=== PATIENT | female | born 1950 | race Caucasian/White ===

== ENCOUNTER → 2017-05-25 10:50 | Outpatient (CLI) | payer OTHER, SELFPAY ==
[2017-05-25 12:57] LABS: Absolute Neutrophil Count 12.6 X10^3/uL (2.0-7.7); Basophil# 0.12 X10^3/uL; Basophil% 0.7 % (0-1); Eosinophil# 0.05 X10^3/uL; Eosinophils% 0.3 % (0-5); Hematocrit 46.6 % (37-47); Hemoglobin 15.6 g/dl (12.0-15.0); Lymphocyte % 14.4 % (19-41); Mean Corp Hgb Conc 33.5 g/gl (32-36); Mean Corpuscular Hgb 30.4 pg (27.0-32.0); Mean Corpuscular Volume 90.8 fL (81-99); Mean Platelet Vol. 10.1 fl (6.2-12.0); Neutrophil # 12.58 X10^3/uL (2.7-7.7); Neutrophil % 75.3 % (47-70); Platelet Count 293 K/mm3 (150-450); RBC Distribution Width CV 13.9 % (11.6-14.6); RBC Distribution Width SD 45.9 fl (35.1-43.9); Red Blood Count 5.13 M/mm3 (4.2-5.4); White Blood Count 16.7 K/mm3 (4.4-11.0)
[2017-05-25 12:58] LABS: POSITIVE COUNT NO; POSITIVE DIFFERENTIAL NO; POSITIVE MORPHOLOGY NO
[2017-05-25 13:22] LABS: Vitamin D,25 Hydroxy 6.1 ng/mL (19.95-100.01)
[2017-05-25 13:28] LABS: ALB/GLOB Ratio 0.9 RATIO (0.9-2.4); AST(SGOT) 26 U/L (15-37); Alanine Aminotransfer ALT/SGPT 29 U/L (13-56); Albumin, Serum 3.7 g/dL (3.2-5.0); Alkaline Phosphatase 100 U/L (45-117); Anion Gap 10 (5-15); BUN 22 mg/dL (7-18); Calcium,Total 8.6 mg/dL (8.5-10.1); Chloride 100 mmol/L (98-107); Creatinine, Serum 0.96 mg/dL (0.55-1.02); EST Glomerular Filtration Rate 62 mL/min (>60); Est Glom Filt Rate - Afr Amer 75 mL/min (>60); Globulin 4.2 g/dL (2.2-4.2); Glucose 154 mg/dL (74-106); Potassium 4.1 mmol/L (3.5-5.1); Protein, Total 7.9 g/dL (6.4-8.2); Sodium Level 135 mmol/L (136-145); Thyroid Stim Hormone (TSH) 1.87 uIU/mL (0.358-3.74)
[2017-05-26 16:02] LABS: Hep C Antibodies 0.2 s/co ratio (0.0-0.9)
== END ==
PROVIDERS: Family Provider Family Medicine Geriatric Medicine; PCP Family Medicine Geriatric Medicine; Visit Provider Family Medicine Geriatric Medicine
DX: E55.9 Vitamin D deficiency, unspecified (principal); R53.83 Other fatigue; Z13.89 Encounter for screening for other disorder; N39.0 Urinary tract infection, site not specified
CPT/HCPCS: 36415; 80053; 82306; 84443; 85025; 86803; 87086; 87088; 87186

== ENCOUNTER → 2017-06-19 08:45 | Outpatient (CLI) | payer OTHER, SELFPAY ==
--- NOTE | 2017-06-19 08:48 | AAVD_ITS ---
Reason For Study: SMA stenosis Aorta Measurements Aorta Doppler Measurements Proximal aorta measures1.3 x 1.3cm. in cross- Peak systolic flow velocities within the proximal sectional axis. aorta measure 61.7 cm/sec. Proximal aorta measures1.3cm. in longitudinal Peak systolic flow velocities within the mid axis. aorta measure 50.1 cm/sec. Mid aorta measures1.3 x 1.3cm. in cross-sectionalPeak systolic flow velocities within the distal axis. aorta measure 58.1 cm/sec. Mid aorta measures1.3cm. in longitudinal axis. SMA Distal aorta measures1.2 x 1.1cm. in cross- Origin - 313.0 cm/s sectional axis. Prox - 305.0 cm/s Distal aorta measures1.2cm. in longitudinal axis.Mid - 157.0 cm/s Dist - 102.0 cm/s Celiac Absent color flow and doppler signal Hepatic artery - 88.5 cm/s Splenic artery - 56.6 cm/s COSMO not identified. Procedure Aorta IVC Iliac vasculature or bypass grafts 61427. Exam performed in department. Interpretation Summary 1. Aortoiliac with no stenosis. 2. 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 2. Celaic appears occluded. 4. COSMO not seen. Ordering Physician: Lamberto Kay Referring Physician: Lamberto Kay Performed By: Marija Woodruff RVT
== END ==
PROVIDERS: Family Provider Family Medicine Geriatric Medicine; PCP Family Medicine Geriatric Medicine; Visit Provider Surgery Vascular Surgery
DX: K55.1 Chronic vascular disorders of intestine (principal); F17.200 Nicotine dependence, unspecified, uncomplicated; E78.00 Pure hypercholesterolemia, unspecified; R10.9 Unspecified abdominal pain; R63.4 Abnormal weight loss
CPT/HCPCS: 93978

== ENCOUNTER 2017-06-22 07:53 | Day surgery (SDC) | payer OTHER, SELFPAY ==
--- NOTE | 2017-06-22 | COLBX_PTH ---
PATIENT: GINNY PIERRE LOC: EN U#:[id number] AGE/SX: 66/F ROOM: RE06/22/[address]: Dr. Gila Ortiz MD : 1950 BED: DIS: 06/22/2017 SPEC #: [id number] RECD: 06/22/17 11:08 STATUS: PHYLLIS DAVE #: [id number] MARISOL: 06/22/17 00:[address]: Gila Ortiz DEPT: SURGICAL PATHOLOGY RECD BY: Nando Keane ENTERED: 06/22/17 13:11 SP TYPE: COLON BX OTHR DR: Dr. Michael Oliveira MD Tissues: A - Ascending colon B - Transverse colon C - Rectum, NOS Procedures: Surgery Specimen Level IV HEADER OPERATION: Colonoscopy PRE-OP DIAGNOSIS: Screening TISSUE SUBMITTED: A. Ascending colon polyp biopsy, B. Transverse colon polyps (2) biopsy, C. Rectal colon polyps MICROSCOPIC DIAGNOSIS A. Ascending colon polyp, biopsy: Fragments of tubular adenoma. B. Transverse colon polyps, biopsy: Fragments of tubular adenoma. C. Rectal colon polyps, biopsy: Fragments of hyperplastic polyp. AM:andrés 06/23/17 MICROSCOPIC DESCRIPTION Slides are reviewed. GROSS DESCRIPTION A - Received in fixative is one container labeled with the patient's name and designated ascending colon polyp biopsy. The specimen consists of multiple irregular fragments of light love soft tissue that in aggregate measure 2 x 0.3 x 0.1 cm. The specimen is totally submitted in one cassette. B - Received in fixative is one container labeled with the patient's name and designated transverse colon polyp biopsy. The specimen consists of multiple irregular fragments of light love soft tissue that in aggregate measure 2 x 0.5 x 0.1 cm. The specimen is totally submitted in one cassette. C - Received in fixative is one container labeled with the patient's name and designated rectal biopsy. The specimen consists of multiple irregular fragments of light love soft tissue that in aggregate measure 2 x 0.4 x 0.1 cm. The specimen is totally submitted in one cassette. / ISAIAS:[email or web address] 06/22/17 TC:5 CPT: 08931 x3
[2017-06-22 08:12] VITALS: BP 126/55; PULSE 87; RESP 18; TEMP 36.8; O2SAT 100; BMI 18.3
[2017-06-22 09:58] VITALS: BP 126/55; BP 129/78; PULSE 94; RESP 16; TEMP 36.6; O2SAT 100
[2017-06-22 10:00] VITALS: BP 126/55; BP 126/72; PULSE 85; RESP 16; O2SAT 99
[2017-06-22 10:05] VITALS: BP 126/55; BP 132/82; PULSE 82; RESP 16; O2SAT 99
[2017-06-22 10:10] VITALS: BP 126/55; BP 140/70; PULSE 83; RESP 16; TEMP 36.4; O2SAT 99
--- NOTE | 2017-06-22 10:56 | PCM.OPRPT ---
Report of Operation Date of Procedure: 06/22/17 Pre-Operative Diagnosis: Screening for colon cancer history of rectal polyps not removed due to GI bleed at that time Post-Operative Diagnosis: Ascending, transverse, multiple sessile rectal polyps likely hyperplastic Surgery/Procedure Performed:: Colonoscopy with biopsy Type of Anesthesia:: MAC Anesthesiologist: Manny Alvarez Specimen's removed: 1. Ascending colon polyp, 2. Transverse colon polyp, 3. Rectal polyps Estimated Blood Loss (mL): Minimal Description of Procedure: Procedure: Colonoscopy After reviewing the risks benefits, the patient was deemed in satisfactory condition to undergo procedure. After obtaining informed consent, the scope was passed under direct visualization. Throughout the procedure, the patient's blood pressure pulse and position saturations were monitored continuously anesthesia. The colonoscope was introduced through the anus and advanced to the cecum, identified by the appendiceal orifice, IC valve and transillumination. The colonoscopy was performed without difficulty. The patient tolerated procedure well. Quality of bowel prep was good. Findings: The perianal and digital rectal exam were normal. Small sessile ascending and transverse colon polyps removed with cold forceps biopsies. Rectum contain multiple sessile polyps likely hyperplastic several were removed however all of them were not room at this time. Otherwise the colon (entire examined portion) appeared normal. Retroflexed view of the distal rectum and anal verge was normal and showed no anal or rectal abnormalities Impression: 1. Ascending, transverse, rectal polyps. Biopsied 2. The distal rectal and anal verge were normal on retroflexed view. Recommendations: Await pathology Repeat colonoscopy in 3-5 years for screening purposes depending on biopsy results - Complications None
[2017-06-22 11:12] VITALS: BP 126/55
== END 2017-06-22 11:12 | disposition home or self-care (01) ==
LOC: EN 07:54 → AC 07:55
PROVIDERS: Family Provider Family Medicine Geriatric Medicine; PCP Family Medicine Geriatric Medicine; Visit Provider Surgery
PROC: 0DJD8ZZ Inspection of Lower Intestinal Tract, Via Natural or Artificial Opening Endoscopic (ICD-10-PCS; CPT 45378; principal; 2017-06-22 08:55)
DX: Z12.11 Encounter for screening for malignant neoplasm of colon (principal); D12.2 Benign neoplasm of ascending colon; D12.3 Benign neoplasm of transverse colon; K62.1 Rectal polyp; F41.9 Anxiety disorder, unspecified; F32.9 Major depressive disorder, single episode, unspecified; E78.00 Pure hypercholesterolemia, unspecified; R49.0 Dysphonia; Z87.19 Personal history of other diseases of the digestive system; Z78.0 Asymptomatic menopausal state; Z90.49 Acquired absence of other specified parts of digestive tract; F17.200 Nicotine dependence, unspecified, uncomplicated; Z79.82 Long term (current) use of aspirin; Z79.899 Other long term (current) drug therapy
CPT/HCPCS: 45380; 88305

== ENCOUNTER → 2017-11-25 15:15 | Outpatient (CLI) | payer MEDICARE, SELFPAY ==
[2017-11-25 16:37] LABS: ALB/GLOB Ratio 0.9 RATIO (0.9-2.4); AST(SGOT) 24 U/L (15-37); Alanine Aminotransfer ALT/SGPT 27 U/L (13-56); Albumin, Serum 3.7 g/dL (3.2-5.0); Alkaline Phosphatase 81 U/L (45-117); Anion Gap 10 (5-15); BUN 13 mg/dL (7-18); BUN/Creat Ratio 16.9 RATIO (10-20); Calcium,Total 8.9 mg/dL (8.5-10.1); Chloride 105 mmol/L (98-107); Creatinine, Serum 0.77 mg/dL (0.55-1.02); EST Glomerular Filtration Rate 80 mL/min (>60); Est Glom Filt Rate - Afr Amer 97 mL/min (>60); Glucose 80 mg/dL (74-106); Potassium 4.3 mmol/L (3.5-5.1); Protein, Total 7.7 g/dL (6.4-8.2); Sodium Level 141 mmol/L (136-145); Thyroid Stim Hormone (TSH) 3.01 uIU/mL (0.358-3.74)
[2017-11-25 16:42] LABS: Absolute Neutrophil Count 6.2 X10^3/uL (2.0-7.7); Basophil# 0.06 X10^3/uL; Basophil% 0.6 % (0-1); Eosinophil# 0.12 X10^3/uL; Eosinophils% 1.3 % (0-5); Hematocrit 46.1 % (37-47); Hemoglobin 14.9 g/dl (12.0-15.0); Lymphocyte % 28.1 % (19-41); Mean Corp Hgb Conc 32.3 g/gl (32-36); Mean Corpuscular Volume 92.9 fL (81-99); Mean Platelet Vol. 9.9 fl (6.2-12.0); Monocyte# 0.49 X10^3/uL; Monocyte% 5.1 % (0-10); Neutrophil # 6.22 X10^3/uL (2.7-7.7); Neutrophil % 64.8 % (47-70); POSITIVE COUNT NO; POSITIVE DIFFERENTIAL NO; POSITIVE MORPHOLOGY NO; Platelet Count 265 K/mm3 (150-450); RBC Distribution Width CV 14.8 % (11.6-14.6); RBC Distribution Width SD 50.2 fl (35.1-43.9); Red Blood Count 4.96 M/mm3 (4.2-5.4); White Blood Count 9.6 K/mm3 (4.4-11.0)
== END ==
PROVIDERS: Family Provider Family Medicine Geriatric Medicine; PCP Family Medicine Geriatric Medicine; Visit Provider Family Medicine Geriatric Medicine
DX: E55.9 Vitamin D deficiency, unspecified (principal); R53.83 Other fatigue
CPT/HCPCS: 36415; 80053; 82306; 84443; 85025

== ENCOUNTER → 2018-03-03 16:35 | Outpatient (CLI) | payer MEDICARE, SELFPAY ==
--- OUTSIDE RECORDS SUMMARY | 2018-04-29 02:41 | XMS RPT_ITS ---
:1950 Author Organization OHIP Care Team Providers Name Role Phone David Rordigues Admitting Unavailable David Rodrigues Attending Unavailable Tee, Micheal Chi Primary Care Unavailable Tee, Michael Chi Attending Unavailable Tee, Michael Chi Referring Unavailable Tee, Michael Chi Primary Care Unavailable Tee, Michael Chi Attending Unavailable Tee, Michael Chi Primary Care Unavailable Robotham, Gila Attending Unavailable Tee, Michael Chi Referring Unavailable Tee, Michael Chi Primary Care Unavailable Lamberto Kay Attending Unavailable Lamberto Kay Referring Unavailable Tee, Michael Chi Primary Care Unavailable Robotham, Gila Attending Unavailable Robotham, Gila Referring Unavailable Tee, Michael Chi Primary Care Unavailable Robotham, Gila Attending Unavailable Robotham, Gila Referring Unavailable Tee, Michael Chi Primary Care Unavailable Robotham, Gila Consulting Unavailable Tee, Michael Chi Attending Unavailable Tee, Michael Chi Primary Care Unavailable Tee, Michael Chi Attending Unavailable Tee, Michael Chi Referring Unavailable Tee, Michael Chi Primary Care Unavailable PROBLEMS PROBLEMS DATE TYPE CONDITION / CODE ATTENDING STATUS SOURCE 06/19/2017 Unknown K55.1 - Chronic Lamberto Kay Active [place] [facility] intestine / Hospital K55.1(ICD-10) Repository 06/19/2017 Unknown F17.210 - Nicotine Lamberto Kay Active [place] dependence, [facility] cigarettes, Hospital uncomplicated / Repository F17.210(ICD-10) 06/19/2017 Unknown E78.70 - Disorder Lamberto Kay Active [place] of bile acid and [facility] cholesterol Hospital metabolism, Repository unspecified / E78.70(ICD-10) 06/19/2017 Unknown R10.9 - Unspecified Lamberto Kay Active [place] abdominal pain / Community R10.9(ICD-10) Hospital Repository 06/19/2017 Unknown R63.4 - Abnormal Lamberto Kay Active [place] weight loss / Community R63.4(ICD-10) Hospital Repository PROCEDURES PROCEDURES No Procedure Records FoundRESULTS RESULTS LUMBAR SPINE 2 OR 3 Observed: 03/19/2018 Status: F Source: [facility] 11:33 AM [facility] REPOSITORY [facility] Imaging Services [address] [place] [address] Lumbar Spine 2 or 3 Views MR#: [id number] Acct: [id number] Name: JESSICA PIERRE Rep #: [id number] : 1950 F 67 From: Akshat Yeager MD PCP: Michael Oliveira MD, Chi Status: REG CLI Study: Lumbar Spine 2 or 3 Views Date of Exam: 03/19/18 Exam# [id number] Ordering Dr: Michael Oliveira MD STUDY: X-RAY - LUMBAR SPINE REASON FOR EXAM: Female, 67 years old. Low back pain TECHNIQUE: 3 view(s) of the lumbar spine were obtained. COMPARISON: None FINDINGS: Normal lumbar lordosis. There is no substantial scoliosis. There is a normal alignment of the vertebrae. Normal vertebral bodies and endplates. Normal disc space heights. There is no demonstrated fracture. Celiac axis and superior mesenteric artery stents identified. RAD/Lumbar Spine 2 or 3 Views IMPRESSION: 1. Mild lumbar spondylosis. No compression fracture or significant disc space narrowing. 2. Mesenteric artery stents. Electronically Signed: Akshat Yeager MD at 16:23 EST , Service support , CC: Michael Oliveira MD Portfolio Administrator: Signed Observed: 03/03/2018 Status: F Source: [place] RESPIRATORY PANEL 4:48 PM [facility] MOLECULAR REPOSITORY RP PANEL ADENOVIRUS Not Detected HUMAN METAPHNEUMO Not Detected INFLUENZA A Not Detected INFLUENZA A (SUBTYPE H1) Not Detected INFLUENZA A (SUBTYPE H3) Not Detected INFLUENZA B Not Detected PARAINFLUENZA 1 Not Detected PARAINFLUENZA 2 Not Detected PARAINFLUENZA 3 Not Detected PARAINFLUENZA 4 Not Detected RHINOVIRUS Not Detected RSV A Not Detected RSV B Not Detected NAAT METHOD Testing was performed using nucleic acid amplification Performed By: #### M100.638 #### [facility] [place], [address] CNPN Observed: 01/19/2018 Status: COMPLETED Source: [place] 12:00 AM [facility] REPOSITORY Telephone (ASWSTR) JESSICA PIERRE ([id number]) 1950 F Date Time Provider Department 01/19/18 MELIA PARKS ASWSTR During your visit today, we recorded the following information about you: Stacy Ayoub RN, RN 01/19/2018 11:04 AM Signed Pt due for follow up colonoscopy. Last 2014-had polyps but they were not removed due to some bleeding issues. Pt last seen here 02/2016. Please call pt to see if she has had any follow up colonoscopies since then. If not, please schedule pt for a consult with Carolina Trimble due to past GI problems. BRITTANY Eisenberg RN, RN 02/11/2018 1:52 PM Signed Please attempt to call patient. Thank you, BRITTANY Eisenberg Psr 02/12/2018 4:30 PM Signed 1st attempt to call patient. L/m for patient to call and let us know if she had any follow up colonoscopies, if not she needs to schedule a consult for one. Steffany Roman Psr Steffany Roman Psr 02/18/2018 9:07 AM Signed Patient states she had a colonoscopy at [facility] and is not due for a yearly one yet. She says she will continue to go there. Steffany Roman Psr Stacy Ayoub RN, RN 02/18/2018 1:12 PM Addendum [facility] does not do colonoscopies. Could the GI office in [place] please call patient to confirm where this was done and get a report for our system and to update HM? Please note patient's history of scopes. Thank you. BRITTANY Eisenberg LPN 02/18/2018 1:27 PM Signed Left a message for patient to call the GI office. Nneka Law LPN Allergies As of Date: 01/19/2018 Noted Allergy Reaction MORPHINE 12/20/2004 9 - Itching Date Reviewed: 01/07/2016 Reviewed by: Yu Keller Ma - Fully Assessed Reason for Visit: Outpatient Colonoscopy [482] Prescriptions as of 01/19/2018 Sig: OMEPRAZOLE 20 MG CAPSULE,STONE* Take 1 capsule by mouth once * ATORVASTATIN 10 MG TABLET Take 1 tablet by mouth once d* IMIPRAMINE 25 MG TABLET Take 1 tablet by mouth daily * OXAZEPAM 15 MG CAPSULE Take 1 capsule by mouth three* SUCRALFATE 1 GRAM TABLET Take 1 tablet by mouth twice * HYDROCORTISONE 2.5 % TOPICAL * Apply 1 application to affect* ASPIRIN 81 MG CHEWABLE TABLET Take 1 tablet by mouth once d* ACETAMINOPHEN 325 MG TABLET Take 1-2 tablets by mouth laurita* ANTACID ANTI-GAS ORAL Take by mouth as needed. Problem List As Of Date 01/19/2018 Noted Resolved TOBACCO USE DISORDER [F17.200] Anxiety state, unspecified [F41.1] INVALID FOR* Priority: G More... Depressive disorder, not elsewhere classified [* More... Eczema, Dyshidrotic [L30.1] INVALID FOR* Hyperlipidemia [E78.5] INVALID FOR*03/02/2015 Osteoporosis [M81.0] INVALID FOR* More... Abdominal pain, right upper quadrant [R10.11] INVALID FOR*05/11/2014 Nausea [R11.0] INVALID FOR*05/11/2014 Chronic cholecystitis [K81.1] INVALID FOR* Chronic mesenteric ischemia (HCC) [K55.1] INVALID FOR* Priority: B More... GI bleed [K92.2] INVALID FOR* Priority: A More... Acute blood loss anemia [D62] INVALID FOR* Priority: A More... Depression [F32.9] INVALID FOR* Priority: D More... Mixed hyperlipidemia [E78.2] INVALID FOR* Ear barotrauma [T70.0XXA] INVALID FOR* Acute gastric ulcer [K25.3] INVALID FOR* Polyp of colon [K63.5] INVALID FOR* Encounter Status:Closed by STEFFANY ELLIOTT on 02/18/18 VITAMIN D,25 HYDROXY Collected: 11/25/2017 Status: F Source: [place] 3:17 PM [facility] REPOSITORY TYPE CODE TESTS RESULT OUT OF RANGE REFERENCE UNITS LAB L506.1000 29.95-100.01 ng/mL Normal Vitamin D 38.0 25-OH Result Comment: Vitamin D 25(OH) Status Range Deficiency <20 ng/mL (50nmol/L) Insuffciency 20 - 30 ng/mL (50 - 75 nmol/L) Sufficiency 30 - 100 ng/mL (75 - 250 nmol/L) Toxicity >100 ng/mL (>250 nmol/L) Performed By: #### L506.1000 #### [facility] [place], [address] COMPREHENSIVE METABOLIC Collected: 11/25/2017 Status: F Source: [place] 3:17 PM [facility] REPOSITORY TYPE CODE TESTS RESULT OUT OF RANGE REFERENCE UNITS LAB L501.0100 74-106 mg/dL Normal GLU 80 Result Comment: Please note revised GLUCOSE reference range effective 2017. LAB L501.1000 7-18 mg/dL Normal BUN 13 LAB L501.1100 0.55-1.02 mg/dL Normal CREAT,SERUM 0.77 Result Comment: The validity of the calculated GFR AND GFRAA in patients over 70 years has not been determined. Clinical correlation is essential. LAB L501.1110 >60 mL/min Normal EST GFR 80 Result Comment: Non- GFR Calc LAB L501.1115 >60 mL/min Normal EST GFR - AA 97 Result Comment: GFR Calc LAB L501.1300 10-20 RATIO Normal BUN/CRE 16.9 LAB L501.1500 6.4-8.2 g/dL T Normal PROT 7.7 LAB L501.1800 3.2-5.0 g/dL Normal ALB 3.7 LAB L501.1950 2.2-4.2 g/dL Normal GLOB 4.0 LAB L501.2000 0.9-2.4 RATIO Normal A/G 0.9 LAB L501.2200 8.5-10.1 mg/dL CA Normal 8.9 LAB L501.4100 15-37 U/L Normal AST 24 LAB L501.4305 45-117 U/L Normal ALK P 81 LAB L501.4405 13-56 U/L Normal ALT 27 LAB L501.4600 0.20-1.00 mg/dL T Normal BILI 0.30 LAB L501.5300 136-145 mmol/L NA Normal 141 LAB L501.5600 3.5-5.1 mmol/L K Normal 4.3 LAB L501.5900 98-107 mmol/L CL Normal 105 LAB L501.6100 21.0-32.0 mmol/L Normal CO2 26.0 LAB L501.6200 5-15 Normal GAP 10 Performed By: #### L500.4050, L501.9520 #### [facility] [address] [place], [address] THYROID STIM HORMONE Collected: 11/25/2017 Status: F Source: [place] ([facility]) 3:17 PM [facility] REPOSITORY TYPE CODE TESTS RESULT OUT OF RANGE REFERENCE UNITS LAB L501.9520 0.358-3.74 uIU/mL Normal TSH 3.01 Performed By: #### L500.4050, L501.9520 #### [facility] [place], [address] CBC W/DIFF, AUTOMATED Collected: 11/25/2017 Status: F Source: [place] 3:17 PM [facility] REPOSITORY TYPE CODE TESTS RESULT OUT OF RANGE REFERENCE UNITS LAB L100.1000 4.4-11.0 K/mm3 Normal WBC 9.6 LAB L100.1200 4.2-5.4 M/mm3 Normal RBC 4.96 LAB L100.1300 12.0-15.0 g/dl Normal HGB 14.9 LAB L100.1400 37-47 % Normal HCT 46.1 LAB L100.1500 81-99 fL Normal MCV 92.9 LAB L100.1600 27.0-32.0 pg Normal MCH 30.0 LAB L100.1700 32-36 g/gl Normal MCHC 32.3 LAB L100.1810 11.6-14.6 % High RDW CV 14.8 LAB L100.1820 35.1-43.9 fl High RDW SD 50.2 LAB L100.1900 150-450 K/mm3 Normal PLT 265 LAB L100.2000 6.2-12.0 fl Normal MPV 9.9 LAB L100.2100 47-70 % Normal NEUT% 64.8 LAB L100.2200 19-41 % Normal LY% 28.1 LAB L100.2300 0-10 % Normal MONO% 5.1 LAB L100.2400 0-5 % Normal EO% 1.3 LAB L100.2500 0-1 % Normal BASO% 0.6 LAB L100.2550 0.0-0.9 % Normal IM GRAN % 0.100 Result Comment: IG% - Immature Granulocytes (promyelocytes, myelocytes and metamyelocytes) > 1% indicates that a LEFT SHIFT is Present. LAB L100.2620 2.0-7.7 X10 3/uL Normal Absolute Neut 6.2 LAB L100.2720 0.83-4.51 X10 3/ul Normal Absolute Lymph 2.70 Performed By: #### L100.0100 #### [facility] [address] [place], [address] OPERATIVE REPORT Observed: 06/24/2017 Status: F Source: [place] 10:11 AM [facility] Medical Records Department [address] [place] [address] Operative Report 06/22/17 1056 MR#: [id number] Acct: [id number] Name: JESSICA PIERRE Rep #: [id number] : 1950 66 From: Gila Ortiz MD PCP: Michael Oliveira MD, Chi Status: [facility] Y Location: EN Report of Operation Date of Procedure: 06/22/17 Pre-Operative Diagnosis: Screening for colon cancer history of rectal polyps not removed due to GI bleed at that time Post-Operative Diagnosis: Ascending, transverse, multiple sessile rectal polyps likely hyperplastic Surgery/Procedure Performed:: Colonoscopy with biopsy Type of Anesthesia:: MAC Anesthesiologist: Manny Alvarez Specimen's removed: 1. Ascending colon polyp, 2. Transverse colon polyp, 3. Rectal polyps Estimated Blood Loss (mL): Minimal Description of Procedure: Procedure: Colonoscopy After reviewing the risks benefits, the patient was deemed in satisfactory condition to undergo procedure. After obtaining informed consent, the scope was passed under direct visualization. Throughout the procedure, the patient's blood pressure pulse and position saturations were monitored continuously anesthesia. The colonoscope was introduced through the anus and advanced to the cecum, identified by the appendiceal orifice, IC valve and transillumination. The colonoscopy was performed without difficulty. The patient tolerated procedure well. Quality of bowel prep was good. Findings: The perianal and digital rectal exam were normal. Small sessile ascending and transverse colon polyps removed with cold forceps biopsies. Rectum contain multiple sessile polyps likely hyperplastic several were removed however all of them were not room at this time. Otherwise the colon (entire examined portion) appeared normal. Retroflexed view of the distal rectum and anal verge was normal and showed no anal or rectal abnormalities Impression: 1. Ascending, transverse, rectal polyps. Biopsied 2. The distal rectal and anal verge were normal on retroflexed view. Recommendations: Await pathology Repeat colonoscopy in 3-5 years for screening purposes depending on biopsy results - Complications None 06/24/17 1011 <Electronically signed by Gila Ortiz MD> Date Gila Ortiz MD CC: Michael Oliveira MD; Gila Ortiz MD Signed ABD AORTIC/IVC DUPLEX Observed: 06/23/2017 Status: F Source: [place] SCAN 8:48 PM [facility] Cardiovascular Services [address] [place] [address] Abd Aortic/IVC Duplex scan 06/19/17 0852 MR#: [id number] Acct: [id number] Name: JESSICA PIERRE Rep #: [id number] : 1950 66 From: Lamberto Kay MD Attending Dr: Lamberto Kay MD Status: REG CLI Ordering Dr: Lamberto Kay MD Date: 06/19/17 Location: [facility] Sex: F C Admitted: Reason For Study: SMA stenosis Aorta Measurements Aorta Doppler Measurements Proximal aorta measures1.3 x 1.3cm. in cross- Peak systolic flow velocities within the proximal sectional axis. aorta measure 61.7 cm/sec. Proximal aorta measures1.3cm. in longitudinal Peak systolic flow velocities within the mid axis. aorta measure 50.1 cm/sec. Mid aorta measures1.3 x 1.3cm. in cross-sectionalPeak systolic flow velocities within the distal axis. aorta measure 58.1 cm/sec. Mid aorta measures1.3cm. in longitudinal axis. SMA Distal aorta measures1.2 x 1.1cm. in cross- Origin - 313.0 cm/s sectional axis. Prox - 305.0 cm/s Distal aorta measures1.2cm. in longitudinal axis.Mid - 157.0 cm/s Dist - 102.0 cm/s Celiac Absent color flow and doppler signal Hepatic artery - 88.5 cm/s Splenic artery - 56.6 cm/s COSMO not identified. Procedure Aorta IVC Iliac vasculature or bypass grafts 84659. Exam performed in department. Interpretation Summary 1. Aortoiliac with no stenosis. 2. 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 2. Celaic appears occluded. 4. COSMO not seen. Ordering Physician: Lamberto Kay Referring Physician: Lamberto Kay Performed By: Marija Woodruff RVT 06/23/172046 Date Lamberto Kay MD CC: Lamberto Kay MD; Michael Oliveira MD Date Dictated: 06/19/17851 Date Transcribed: 06/23/172046 Portfolio Administrator: Signed COLON BIOPSY (CHOOSE Observed: 06/22/2017 Status: F Source: [facility]) 12:00 AM [facility] REPOSITORY Patient: JESSICA PIERRE : 1950 (66/F) Acct Num: [id number] Phys: Gila Ortiz MD Unit Num: [id number] Loc: EN Specimen: [id number] Received: 06/22/17 - 8 Spec Type: COLON BX TISSUES TISSUES: A. Ascending colon B. Transverse colon C. Rectum, NOS GROSS DESCRIPTION A - Received in fixative is one container labeled with the patient's name and designated ascending colon polyp biopsy. The specimen consists of multiple irregular fragments of light love soft tissue that in aggregate measure 2 x 0.3 x 0.1 cm. The specimen is totally submitted in one cassette. B - Received in fixative is one container labeled with the patient's name and designated transverse colon polyp biopsy. The specimen consists of multiple irregular fragments of light love soft tissue that in aggregate measure 2 x 0.5 x 0.1 cm. The specimen is totally submitted in one cassette. C - Received in fixative is one container labeled with the patient's name and designated rectal biopsy. The specimen consists of multiple irregular fragments of light olve soft tissue that in aggregate measure 2 x 0.4 x 0.1 cm. The specimen is totally submitted in one cassette. / SJ:andrés 06/22/17 TC:5 CPT: 82307 x3 HEADER OPERATION: Colonoscopy PRE-OP DIAGNOSIS: Screening TISSUE SUBMITTED: A. Ascending colon polyp biopsy, B. Transverse colon polyps ( 2) biopsy, C. Rectal colon polyps MICROSCOPIC DESCRIPTION Slides are reviewed. MICROSCOPIC DIAGNOSIS A. Ascending colon polyp, biopsy: Fragments of tubular adenoma. B. Transverse colon polyps, biopsy: Fragments of tubular adenoma. C. Rectal colon polyps, biopsy: Fragments of hyperplastic polyp. AM:andrés 06/23/17 Signed Ori Facundo 06/23/17 <signature on file> Performed By: #### PCOLBX #### [facility] [address] [place] [address]. 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 Recovery Supervisor Required: No Is patient in pain?: No Allergies morphine Allergy (Verified 06/05/17 13:08) Itching Medications Oxazepam [Serax] 15 mg PO TID 05/23/14 [History Confirmed 06/05/17] Aspirin [Aspirin, Baby] 81 mg PO DAILY@0800 07/09/16 [History Confirmed 06/05/17] Atorvastatin Calcium [Lipitor] 80 mg PO QHS 07/09/16 [History Confirmed 06/05/17] Imipramine HCl [Tofranil] 25 mg PO QHS 07/09/16 [History Confirmed 06/05/17] cholecalciferol (vitamin D3) 1,000 unit capsule 1,000 unit PO ONCE 06/05/17 [History Confirmed 06/05/17] PFSH Medical History Anxiety (Acute) Depression (Acute) GI bleed (Acute) Hypercholesterolemia (Acute) Surgical History H/O: hysterectomy (Acute) History of laparoscopic cholecystectomy (Acute) Family History Mother Diabetes Hypertension Kidney disease Daughter Breast cancer Father CVA (cerebral vascular accident) Social History Smoking Status: Former smoker alcohol intake: never HPI HPI HPI: JESSICA PIERRE, is a 66 F who presents to the office today for a screening colonoscopy. 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 Kay 07/30/16. Patient denies any epigastric pain/abdominal pain and admits to being able to put on a few pounds. Patient states she has bowel movements about every other day or daily. Denies any blood denies nausea/vomiting/fever/chills. Patient's last colonoscopy was in 2014 during her episode of GI bleeding after her stents were placed at that time possible hyperplastic polyps were seen in the rectum but they were not removed due to her blood disorder possibly due to too much anticoagulation. Patient states that her previous colonoscopy before that was normal patient is unsure of the date. Patient denies any family history of colon cancer. ROS General General: No weight change or fatigue Gastro Gastrointestinal: No abdominal pain, No nausea or vomiting, No diarrhea, No constipation, No blood in stool, No acid reflux, No hemorrhoids, No ulcers, No black,tarry stools Assessment AND Plan Problems 1. Screening for colon cancer Z12.11 Plan I have discussed the above with the patient. I have offered the patient colonoscopy for evaluation. I have explained the risks/benefits of the procedure and described the procedure. I have discussed the risks with the patient, including but not limited to: infection, bleeding, perforation of the GI tract requiring emergency surgery, inability to complete the procedure, injury to any internal organs, complications of anesthesia, etc. - the patient understands and agrees to proceed. I have answered all the patient's questions to the patient's satisfaction and the patient has no further questions. The patient has been given instructions for the colon cleansing preparation- split dose. Gila Ortiz M.D. Pager: [phone] [facility] [address] [place] [address], [address] [place] [address] Office: [phone] Orders Orders: Plan Detail Follow Up 1 (colonoscopy schedule) Coding Level of Care Code Off vis,est,level 3 Diagnoses Screening for colon cancer Z12.11 06/08/17 1355 <Electronically signed by Gila Ortiz MD> Date Gila Ortiz MD Cosigner Signature: Date (if applicable) CC: Michael Oliveira MD CBC W/DIFF, AUTOMATED Collected: 05/25/2017 Status: F Source: [place] 11:01 AM [facility] REPOSITORY TYPE CODE TESTS RESULT OUT OF RANGE REFERENCE UNITS LAB L100.1000 4.4-11.0 K/mm3 High WBC 16.7 LAB L100.1200 4.2-5.4 M/mm3 Normal RBC 5.13 LAB L100.1300 12.0-15.0 g/dl High HGB 15.6 LAB L100.1400 37-47 % Normal HCT 46.6 LAB L100.1500 81-99 fL Normal MCV 90.8 LAB L100.1600 27.0-32.0 pg Normal MCH 30.4 LAB L100.1700 32-36 g/gl Normal MCHC 33.5 LAB L100.1810 11.6-14.6 % Normal RDW CV 13.9 LAB L100.1820 35.1-43.9 fl High RDW SD 45.9 LAB L100.1900 150-450 K/mm3 Normal PLT 293 LAB L100.2000 6.2-12.0 fl Normal MPV 10.1 LAB L100.2100 47-70 % High NEUT% 75.3 LAB L100.2200 19-41 % Low LY% 14.4 LAB L100.2300 0-10 % Normal MONO% 9.0 LAB L100.2400 0-5 % Normal EO% 0.3 LAB L100.2500 0-1 % Normal BASO% 0.7 LAB L100.2550 0.0-0.9 % Normal IM GRAN % 0.300 Result Comment: IG% - Immature Granulocytes (promyelocytes, myelocytes and metamyelocytes) > 1% indicates that a LEFT SHIFT is Present. LAB L100.2620 2.0-7.7 X10 3/uL High Absolute Neut 12.6 LAB L100.2720 0.83-4.51 X10 3/ul Normal Absolute Lymph 2.40 Performed By: #### L100.0100 #### [facility] [address] [facility] [place], [place], [address] VITAMIN D,25 HYDROXY Collected: 05/25/2017 Status: F Source: [place] 11:01 [facility] REPOSITORY TYPE CODE TESTS RESULT OUT OF REFERENCE UNITS RANGE LAB L506.1000 19.95-100.01 ng/mL Low Vitamin D 6.1 25-OH Result Comment: Vitamin D 25(OH) Status Range Deficiency <20 ng/mL (50nmol/L) Insuffciency 20 - 30 ng/mL (50 - 75 nmol/L) Sufficiency 30 - 100 ng/mL (75 - 250 nmol/L) Toxicity >100 ng/mL (>250 nmol/L) Performed By: #### L506.1000 #### [facility] [address] [facility] [place], [place], [address] COMPREHENSIVE METABOLIC Collected: 05/25/2017 Status: F Source: [facility] 11:01 [facility] REPOSITORY TYPE CODE TESTS RESULT OUT OF RANGE REFERENCE UNITS LAB L501.0100 74-106 mg/dL High GLU 154 Result Comment: Fasting Glucose result greater than or equal to 126 mg/dL suggests DIABETES MELLITUS per A.D.A. criteria. Please note revised GLUCOSE reference range effective 2017. LAB L501.1000 7-18 mg/dL High BUN 22 LAB L501.1100 0.55-1.02 mg/dL Normal CREAT,SERUM 0.96 Result Comment: The validity of the calculated GFR AND GFRAA in patients over 70 years has not been determined. Clinical correlation is essential. LAB L501.1110 >60 mL/min Normal EST GFR 62 Result Comment: Non- GFR Calc LAB L501.1115 >60 mL/min Normal EST GFR - AA 75 Result Comment: GFR Calc LAB L501.1300 10-20 RATIO High BUN/CRE 23.0 LAB L501.1500 6.4-8.2 g/dL T Normal PROT 7.9 LAB L501.1800 3.2-5.0 g/dL Normal ALB 3.7 LAB L501.1950 2.2-4.2 g/dL Normal GLOB 4.2 LAB L501.2000 0.9-2.4 RATIO Normal A/G 0.9 LAB L501.2200 8.5-10.1 mg/dL CA Normal 8.6 LAB L501.4100 15-37 U/L Normal AST 26 Result Comment: Slight Hemolysis, Result may be falsely increased. LAB L501.4305 45-117 U/L Normal ALK P 100 LAB L501.4405 13-56 U/L Normal ALT 29 Result Comment: Please note revised ALT reference range effective 2017. LAB L501.4600 0.20-1.00 mg/dL Normal T BILI 0.60 LAB L501.5300 136-145 mmol/L Low NA 135 LAB L501.5600 3.5-5.1 mmol/L Normal K 4.1 Result Comment: Slight Hemolysis, Result may be falsely increased. LAB L501.5900 98-107 mmol/L Normal CL 100 LAB L501.6100 21.0-32.0 mmol/L Normal CO2 25.0 LAB L501.6200 5-15 Normal GAP 10 Performed By: #### L500.4050, L501.9520 #### [facility] [address] [place], [address] THYROID STIM HORMONE Collected: 05/25/2017 Status: F Source: AUTUMN (TSH) 11:01 AM [facility] REPOSITORY TYPE CODE TESTS RESULT OUT OF RANGE REFERENCE UNITS LAB L501.9520 0.358-3.74 uIU/mL Normal TSH 1.87 Performed By: #### L500.4050, L501.9520 #### [facility] [address] [place], [address] HEPATITIS C ANTIBODIES Collected: 05/25/2017 Status: F Source: AUTUMN 11:01 AM [facility] REPOSITORY TYPE CODE TESTS RESULT OUT OF RANGE REFERENCE UNITS LAB L3100.0650 0.0-0.9 s/co ratio Normal HEP C AB 0.2 Result Comment: Negative: < 0.8 Indeterminate: 0.8 - 0.9 Positive: > 0.9 The CDC recommends that a positive HCV antibody result be followed up with a HCV Nucleic Acid Amplification test (460107). Performed at: [facility] [employer] [id number] Hr Internship: Pete Glynn PhD, Phone: [phone] Performed By: #### L3100.0625 #### [facility] (refer to report for specific site) refer to report for address and phone number Observed: 05/25/2017 Status: F Source: AUTUMN CULTURE, URINE 10:53 AM [facility] REPOSITORY Urine Culture ORGANISM 1: Presumptive E. coli [place] Count >100,000 Presumptive E. coli: REACTION Amoxacillin/Clavulanic Acid $ 4 S Ampicillin $ 4 S Ampicillin/Sulbactam $ <=2 S Cefazolin $ <=4 S Cefepime $ <=1 S Ceftriaxone $ <=1 S Ciprofloxacin $ <=0.25 S ESBL - Ertapenim $$$ <=0.5 S Gentamicin $ <=1 S Imipenem *NF <=0.25 S Levofloxacin $ <=0.12 S Nitrofurantoin $ <=16 S Piperacillin/Tazobactam $$ <=4 S Tobramycin $ <=1 S Trimethoprim/Sulfametho $ <=20 S (NF) indicates non-formulary drug at [facility]. Approval by Infectious Disease Specialist required before non-formulary drugs may be ordered and/or dispensed. Performed By: #### M100.0650 #### [facility] [address] [place], [address] ALLERGIES ALLERGIES DATE TYPE / CODE NAME / CODE REACTION SEVERITY SOURCE 06/18/2017 Drug morphine/[id number] Itching Unknown [facility] Allergy/416 545(RXNORM) Hospital 180707(SNOM Repository ED CT) Drug/616698 No Known [facility] 003(SNOMED [facility]) System Repository ENCOUNTERS ENCOUNTERS ADMIT/DISCHARGE ACCOUNT ADMITTING ENCOUNTER LOCATION SOURCE NUMBER CLASS 03/19/2018 [id number] [facility] ing:RAD Repository 03/03/2018 [id number] [facility] ing:PSN Repository 11/25/2017 [id number] [facility] ing:POLAB3 Repository 08/25/2017/08/26/19 [id number] Ravi, [facility] Catholic Catholic 18 [facility] ing:CD:[id number] Health System 7151Room: Repository CD:[id number] 06/22/2017/06/23/[id number] ing:EN Repository 06/22/2017 [id number] Ambulatory BMSBuilding:B [place].CF.[facility] Repository 06/19/2017 [id number] [facility] ing:CVS Repository 06/05/2017/06/06/19 [id number] Ambulatory BMSBuilding:B [place] 18 [place].[facility] Repository 05/25/2017 [id number] [facility] ing:LABSPEC Repository PAYERS PAYERS ENCOUNTER GUARANTOR PAYER SUBSCRIBER SOURCE 03/19/2018 JESSICA [place] Primary JESSICA Leyva [id number] TR Insurance:SOURAV VERNONB: [place] [address], MEDICARE SENIOR [id number] [address]Ako: ADVANTAPolicy Number: Repository [id number] (HP) Date:3437-15-17[address] [place] [address] 16[address]AM: 03/19/2018 Secondary NOT GIVENUNK [place] Insurance:SELF PAY [facility] Number: Effective Repository Date:2018-03-19 03/03/2018 JESSICA L Primary JESSICA L [place] [id number] TR Insurance:ANTHEM SNODGRASSDOB: Community [facility]4[place], MEDICARE SENIOR [id number] [place] [address]Xlu: ADVANTAPolicy Number: Repository [id number] (HP) Date:5489-22-26GE [address] [place] [address]FG: 03/03/2018 Secondary NOT GIVENUNK [place] Insurance:SELF PAY [facility] Number: Effective Repository Date:2018-03-03 11/25/2017 JESSICA L Primary JESSICA L [place] [id number] TR Insurance:ANTHEM SNODGRASSDOB: [address], MEDICARE SENIOR [id number] [place] [address]Ibq: ADVANTAPolicy Number: Repository [id number] (HP) Date:5362-14-50EY [facility] [id number] [place] [address]UW: 11/25/2017 Secondary NOT GIVENUNK [place] Insurance:SELF PAY [facility] Number: Effective Repository Date:2017-11-25 08/25/2017 JESSICA L Primary JESSICA L [facility] SNODGRASSDOB: [facility]: [facility] MCAIDPolicy Number: [id number] System [facility] [address] Effective [facility] [address] Repository [address], Date:2018-01-06 - [address] [facility] [place] 7174-08-03[place]hzz [place] [address]Jqx: Name::[id number] [facility] [address]Cxt: [address] [place] [address] () [address]IE: (HP)Tel: [phone]) [phone] () 06/22/2017 JESSICA [place] Primary JESSICA [place] [id number] TR Insurance:CARESOURCE SNODGRASSDOB: Community [address] [place] [address], JUST FOR [facility] [id number] [place] [address]Dlf: Number: Repository [id number] (HP) Date:5558-33-23QR [address] [address]MO: 06/22/2017 Secondary NOT GIVENUNK [place] Insurance:SELF PAY [facility] Number: Effective Repository Date:2017-06-05 06/22/2017 JESSICA L Primary JESSICA [place] [id number] TR Insurance:CARESOURCE SNODGRASSDOB: [address], [facility] [id number] [place] [address]Vot: Number: Repository [id number] (HP) Date:5774-56-85VS [address] [address]TJ: 06/22/2017 Secondary NOT GIVENUNK [place] Insurance:SELF PAY [facility] Number: Effective Repository Date:2017-06-22 06/19/2017 JESSICA SAABN Primary JESSICA LUJAN [place] [id number] TR Insurance:CARESOURCE SNODGRASSDOB: Community [address] [place] [address], [facility] [id number] [place] [address]Fof: Number: Repository [id number] (HP) Date:7973-45-29PS [address] [address]IF: 06/19/2017 Secondary NOT GIVENUNK [place] Insurance:SELF PAY [facility] Number: Effective Repository Date:2017-06-08 06/05/2017 JESSICA ANGEL Primary JESSICA LUJAN [place] [id number] Insurance:CARESOURCE SNODGRASSDOB: [facility] JUST FOR [facility] [id number], Number: Repository [place] [id number]: [id number] Date:7804-24-58LR [address] () [address], [place] [address]EE: 06/05/2017 Secondary NOT GIVENUNK [place] Insurance:SELF PAY [facility] Number: Effective Repository Date:2017-06-04 05/25/2017 Jessica Lujan Primary Jessica Leyva [id number] Insurance:VELIASOERIC VernonB: [facility] [id number], Number: Repository [place] [id number]: [id number] Date:4165-31-83HY [address] () [address], [place] [address]OL: 05/25/2017 Secondary NOT GIVENUNK [place] Insurance:SELF PAY [facility] Number: Effective Repository Date:2017-05-25
== END ==
PROVIDERS: Family Provider Family Medicine Geriatric Medicine; PCP Family Medicine Geriatric Medicine; Referring Provider Family Medicine Geriatric Medicine; Visit Provider Family Medicine Geriatric Medicine
DX: R68.83 Chills (without fever) (principal)
CPT/HCPCS: 87633

== ENCOUNTER → 2018-03-19 11:30 | Outpatient (CLI) | payer MEDICARE, SELFPAY ==
--- NOTE | 2018-03-19 11:35 | RAD_ITS ---
STUDY: X-RAY - LUMBAR SPINE REASON FOR EXAM: Female, 67 years old. Low back pain TECHNIQUE: 3 view(s) of the lumbar spine were obtained. COMPARISON: None FINDINGS: Normal lumbar lordosis. There is no substantial scoliosis. There is a normal alignment of the vertebrae. Normal vertebral bodies and endplates. Normal disc space heights. There is no demonstrated fracture. Celiac axis and superior mesenteric artery stents identified. RAD/Lumbar Spine 2 or 3 Views IMPRESSION: 1. Mild lumbar spondylosis. No compression fracture or significant disc space narrowing. 2. Mesenteric artery stents. Electronically Signed: Akshat Yeager MD at 16:23 EST , Service support ,
--- OUTSIDE RECORDS SUMMARY | 2018-05-05 04:53 | XMS RPT_ITS ---
:1950 Author Organization OHIP Care Team Providers Name Role Phone David Rodrigues Admitting Unavailable David Rodrigues Attending Unavailable Tee, Michael Chi Primary Care [...] Unknown K55.1 - Chronic Lamberto Kay Active [place] vascular disorders Community of intestine / Hospital K55.1(ICD-10) Repository 06/19/2017 Unknown F17.210 - Nicotine Lamberto Kay Active [place] dependence, Community cigarettes, Hospital uncomplicated / Repository F17.210(ICD-10) 06/19/2017 Unknown E78.70 - Disorder Lamberto Kay Active [place] of bile acid and Community cholesterol Hospital metabolism, Repository unspecified / E78.70(ICD-10) 06/19/2017 Unknown R10.9 - Unspecified Lamberto Kay Active [place] abdominal pain / Community R10.9(ICD-10) Hospital Repository 06/19/2017 Unknown R63.4 - Abnormal Lamberto Kay Active [place] weight loss / Community R63.4(ICD-10) Hospital Repository PROCEDURES PROCEDURES No Procedure Records FoundRESULTS RESULTS CNCO Observed: 04/09/2018 Status: COMPLETED Source: [place] 12:[address] [facility] [place] REPOSITORY Letter Text Department of Gastroenterology [address]. [place], [place] [address] 04/09/2018 Jessica Pierre [facility]#[id number] [address] [facility] [address] Dear Jessica, After several attempts to reach you back regarding where and who did your last colonoscopy by phone. We are sending you a letter. You had responded back earlier that it was done at [facility]. Our records indicate [facility] does not do colonoscopy. We would appreciate it if you could check and get back to us. Thank you for your cooperation. PH: [phone]. Sincerely, KYLIE Saini/Nneka Law LPN LUMBAR SPINE 2 OR 3 Observed: 03/19/2018 Status: F Source: [facility] 11:33 AM COUNT INCLUDES THE [facility] HOSPITAL REPOSITORY [facility] Imaging Services [address] [place] [address] Lumbar Spine 2 or 3 Views MR#: [id number] Acct: [id number] Name: JESSICA PIERRE Rep #: [id number] : 1950 F 67 From: Akshat Yeager MD PCP: Michael Oliveira MD, Chi Status: REG CLI Study: Lumbar Spine 2 or 3 Views Date of Exam: 03/19/18 Exam# [id number] Ordering Dr: Michael Oliveira MD STUDY: X-RAY [...] Service support , CC: Michael Oliveira MD Lean Leader: Signed Observed: 03/03/2018 Status: F Source: [place] RESPIRATORY PANEL 4:48 PM [facility]LECULAR REPOSITORY RP PANEL ADENOVIRUS Not Detected [...] acid amplification Performed By: #### M100.638 #### [facility] [place], [address] [facility] Observed: 01/19/2018 Status: COMPLETED Source: [place] 12:00 AM [facility] REPOSITORY Telephone (ASWSTR) JESSICA PIERRE ([id number]) 1950 F Date Time Provider Department 01/19/18 MELIA PARKS ASWSTR During your visit today, we recorded the following information about you: Stacy Ayoub, RN, RN 01/19/2018 11:04 AM Signed Pt [...] Patient states she had a colonoscopy at [facility] and is not due for a yearly one yet. She says she will continue to go there. Steffany Roman Psakira Ayoub RN, RN 02/18/2018 1:12 PM Addendum [facility] does not do colonoscopies. Could the GI office in [place] please call patient to confirm where this was done and get a report for our system and to update HM? Please note patient's history of scopes. Thank you. BRITTANY Eisenberg LPN 02/18/2018 1:27 PM Signed Left a message for patient to call the GI office. Nneka Ayoub, RN, RN 04/07/2018 11:25 AM Signed See below note, can we follow up with pt and get report? Thank you, BRITTANY Eisenberg LPN 04/07/2018 1:45 PM Signed Left a message for patient to call the office with information where and who did her last colonoscopy. They do not do colonoscopies at [facility]. . Nneka Law LPN 04/09/2018 8:57 AM Signed Letter mailed to patient. Nneka Law LPN Allergies As of Date: [...] [F17.200] Anxiety state, unspecified [F41.1] INVALID FOR* More... Depressive disorder, not elsewhere classified [* More... Eczema, Dyshidrotic [L30.1] INVALID FOR* Hyperlipidemia [E78.5] INVALID FOR*03/02/2015 Osteoporosis [M81.0] INVALID FOR* More... Abdominal pain, right upper quadrant [R10.11] INVALID FOR*05/11/2014 Nausea [R11.0] INVALID FOR*05/11/2014 Chronic cholecystitis [K81.1] INVALID FOR* Chronic mesenteric ischemia (HCC) [K55.1] INVALID FOR* More... GI bleed [K92.2] INVALID FOR* More... Acute blood loss anemia [D62] INVALID FOR* More... Depression [F32.9] INVALID FOR* More... Mixed hyperlipidemia [E78.2] INVALID FOR* Ear barotrauma [T70.0XXA] INVALID FOR* Acute gastric ulcer [K25.3] INVALID FOR* Polyp of colon [K63.5] INVALID FOR* Encounter Status:Closed by STEFFANY ELLIOTT on 02/18/18 VITAMIN D,25 HYDROXY Collected: 11/25/2017 Status: F Source: [place] 3:17 PM [facility] TYPE CODE TESTS RESULT OUT OF RANGE REFERENCE UNITS LAB L506.1000 29.95-100.01 ng/mL Normal Vitamin D 38.0 25-OH Result Comment: Vitamin D 25(OH) Status Range Deficiency <20 ng/mL (50nmol/L) Insuffciency 20 - 30 ng/mL (50 - 75 nmol/L) Sufficiency 30 - 100 ng/mL (75 - 250 nmol/L) Toxicity >100 ng/mL (>250 nmol/L) Performed By: #### L506.1000 #### [facility] [address] [place], [place], [address] COMPREHENSIVE METABOLIC Collected: 11/25/2017 Status: F [facility]17 PM [facility] REPOSITORY TYPE CODE TESTS RESULT OUT OF [...] 10 Performed By: #### L500.4050, L501.9520 #### [facility] [address] [place], [place], [id number] THYROID STIM HORMONE Collected: 11/25/2017 Status: F Source: [place] (TSH) 3:17 PM [facility] REPOSITORY TYPE CODE TESTS RESULT OUT OF RANGE REFERENCE UNITS LAB L501.9520 0.358-3.74 uIU/mL Normal TSH 3.01 Performed By: #### L500.4050, L501.9520 #### [facility] [address] [place], [address] CBC W/DIFF, AUTOMATED Collected: 11/25/2017 Status: F Source: [place] 3:17 PM [facility] REPOSITORY TYPE CODE TESTS RESULT OUT OF [...] Lymph 2.70 Performed By: #### L100.0100 #### [facility] [address] [place], [address] OPERATIVE REPORT Observed: 06/24/2017 Status: F Source: [place] 10:11 AM [facility] RE[facility]IT[facility] Medical Records Department [address] [place] [address] Operative Report 06/22/17 1056 MR#: [id number] Acct: [id number] Name: JESSICA PIERRE Rep #: [id number] : 1950 66 From: Gila Ortiz MD PCP: Tee CISNEROS,Michael Bejarano Status: DEP [facility] Location: EN Report of Operation Date [...] AORTIC/IVC DUPLEX Observed: 06/23/2017 Status: F Source: [place] SCAN 8:48 PM [facility] REPOSITORY [facility] Cardiovascular Services [address] [place] [address] Abd Aortic/IVC Duplex scan 06/19/17 0852 MR#: [id number] Acct: [id number] Name: JESSICA PIERRE Rep #: [id number] : 1950 66 From: Lamberto aKy MD Attending Dr: Lamberto Kay MD Status: REG CLI Ordering Dr: Lamberto Kay MD Date: 06/19/17 Location: [facility] Sex: F C Admitted: Reason For Study: [...] Aorta IVC Iliac vasculature or bypass grafts [address]. Exam performed in department. Interpretation Summary 1. Aortoiliac with no stenosis. 2. 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 2. Celaic appears occluded. 4. COSMO not seen. Ordering Physician: Lamberto Kay Referring Physician: Lamberto Kay Performed By: Marija Woodruff RVT 06/23/17 2047 Date Lamberto Kay MD CC: Lamberto Kay MD; Michael Oliveira MD Date Dictated: 06/19/17851 Date Transcribed: 06/23/172046 Lean Leader: Signed COLON BIOPSY (CHOOSE Observed: 06/22/2017 Status: F Source: [place] SITE) 12:00 AM [facility] RE[facility] Patient: JESSICA PIERRE : 1950 (66/F) Acct Num: [id number] Phys: Diana CISNEROS,[facility] Unit Num: [id number] Loc: EN Specimen: [id number] Received: 06/22/171107 Spec Type: COLON BX TISSUES TISSUES: A. [...] one cassette. / SJ:andrés 06/22/17 TC:5 CPT: 51642 x3 HEADER OPERATION: Colonoscopy PRE-OP DIAGNOSIS: Screening TISSUE SUBMITTED: A. Ascending colon polyp biopsy, B. Transverse colon polyps ( 2) biopsy, C. Rectal colon polyps MICROSCOPIC DESCRIPTION Slides are reviewed. MICROSCOPIC DIAGNOSIS A. Ascending colon polyp, biopsy: Fragments of tubular adenoma. B. Transverse colon polyps, biopsy: Fragments of tubular adenoma. C. Rectal colon polyps, biopsy: Fragments of hyperplastic polyp. AM:andrés 06/23/17 Signed Ori Loredo 06/23/17 <signature on file> Performed By: #### PCOLBX #### [facility] [address] [place], [address] SURGERY VISIT REPORT Observed: 06/08/2017 Status: F Source: [place] 1:55 PM [facility] RE[facility] [address] [place] [address] OFFICE VISIT Date of Service: 06/05/17 MR#: [id number] Acct: [id number] Name: JESSICA PIERRE Rep #: [id number] : 1950 Provider: Gila Ortiz MD Age/Sex: 66/F Location: [facility] Status: Signed Intake Vital Signs06/05/17 Height 5 ft 3 in 06/05/17 Weight: 103 lb 06/05/17 Body Mass Index (BMI) 18.2 Intake Visit 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 Gila Ortiz M.D. Pager: [phone] [facility] [address] [place] [address], [address] [place] [address] Office: [phone] Orders Orders: Plan Detail Follow Up 1 (colonoscopy schedule) Coding Level of Care Code Off vis,est,level 3 Diagnoses Screening for colon cancer Z12.11 06/08/17 1355 <Electronically signed by Gila Ortiz MD> Date Gila Ortiz MD Cosigner Signature: Date (if applicable) CC: Michael Oliveira MD CBC W/DIFF, AUTOMATED Collected: 05/25/2017 Status: F Source: [place] 11:01 AM [facility] RE[place] TYPE CODE TESTS RESULT OUT OF [...] Lymph 2.40 Performed By: #### L100.0100 #### [facility] [address] [place], [place], [address] VITAMIN D,25 HYDROXY Collected: 05/25/2017 Status: F Source: [place] 11:01 AM [facility] REPOS[facility] TYPE CODE TESTS RESULT OUT OF REFERENCE UNITS RANGE LAB L506.1000 19.95-100.01 ng/mL Low Vitamin D 6.1 25-OH Result Comment: Vitamin D 25(OH) Status Range Deficiency <20 ng/mL (50nmol/L) Insuffciency 20 - 30 ng/mL (50 - 75 nmol/L) Sufficiency 30 - 100 ng/mL (75 - 250 nmol/L) Toxicity >100 ng/mL (>250 nmol/L) Performed By: #### L506.1000 #### [facility] [address] [place], [place], [address] COMPREHENSIVE METABOLIC Collected: 05/25/2017 Status: F Source: [facility] 11:01 AM [facility] REPOSIT[facility] TYPE CODE TESTS RESULT OUT OF [...] 10 Performed By: #### L500.4050, L501.9520 #### [facility] [address] [facility] [id number] THYROID STIM HORMONE Collected: 05/25/2017 Status: F Source: [place] (TSH) 11:01 AM [facility] REPOSITORY TYPE CODE TESTS RESULT OUT OF RANGE REFERENCE UNITS LAB L501.9520 0.358-3.74 uIU/mL Normal TSH 1.87 Performed By: #### L500.4050, L501.9520 #### [facility] [address] [place], [place], [address] HEPATITIS C ANTIBODIES Collected: 05/25/2017 Status: F Source: [place] 11:01 AM [facility] REPOSITORY TYPE CODE TESTS RESULT OUT OF RANGE REFERENCE UNITS LAB L3100.0650 0.0-0.9 s/co ratio Normal HEP C AB 0.2 Result Comment: Negative: < 0.8 Indeterminate: 0.8 - 0.9 Positive: > 0.9 The CDC recommends that a positive HCV antibody result be followed up with a HCV Nucleic Acid Amplification test (525547). Performed at: - [facility] [id number] Speech Language Pathology Assistant: Pete Glynn PhD, Phone: [phone] Performed By: #### L3100.0625 #### [facility] (refer to report for specific site) refer to report for address and phone number Observed: 05/25/2017 Status: F Source: [place] CULTURE, URINE 10:53 AM [facility] REPOSITORY Urine Culture ORGANISM 1: Presumptive E. coli [place] Count >100,000 Presumptive E. coli: REACTION Amoxacillin/Clavulanic [...] <=20 S (NF) indicates non-formulary drug at [facility]. Approval by Infectious Disease Specialist required before non-formulary drugs may be ordered and/or dispensed. Performed By: #### M100.0650 #### [facility] [address] [place], [place], [address] ALLERGIES ALLERGIES DATE TYPE / CODE NAME / CODE REACTION SEVERITY SOURCE 06/18/2017 Drug morphine/[id number] Itching Unknown [facility] Allergy/416 545(RXNORM) Hospital 393333(SNOM Repository ED CT) Drug/674633 No Known Alevism 003(SNOMED Allergies [facility] CT) System Repository ENCOUNTERS ENCOUNTERS ADMIT/DISCHARGE ACCOUNT ADMITTING ENCOUNTER LOCATION SOURCE NUMBER CLASS 03/19/2018 [id number] Ambulatory [facility] ing:RAD Repository 03/03/2018 [id number] Ambulatory [facility] ing:PSN Repository 11/25/2017 [id number] Ambulatory [facility] ing:POLAB3 Repository 08/25/2017/08/26/19 [id number] Ravi, Ambulatory [address] ing:CD:[id number] [facility] [address]Room: Repository CD:[id number] 06/22/2017/06/23/19 [id number] [place]ulatory [place] [facility] ing:EN Repository 06/22/2017 [id number] Ambulatory BMSBuilding:B [place] MS.[facility] Repository 06/19/2017 [id number] Ambulatory [facility] ing:CVS Repository 06/05/2017/06/06/19 [id number] Ambulatory BMSBuilding:B [place] [address] MS.[facility] Repository 05/25/2017 [id number] Ambulatory [facility] ing:LABSPEC Repository PAYERS PAYERS ENCOUNTER GUARANTOR PAYER SUBSCRIBER SOURCE 03/19/2018 JESSICA L Primary JESSICA L [place] [id number] TR Insurance:ANTHEM SNODGRASSDOB: Community [address], MEDICARE SENIOR [id number] [address]Tel: ADVANTAPolicy Number: Repository [id number] (HP) Date:3841-66-70UY [address] [place] [address]RF: 03/19/2018 Secondary NOT GIVENUNK [place] Insurance:SELF PAY [facility] Number: Effective Repository Date:2018-03-19 03/03/2018 JESSICA L Primary JESSICA L [place] [id number] TR Insurance:ANTHEM SNODGRASSDOB: Community [address], MEDICARE SENIOR [id number] [place] [id number]: ADVANTAPolicy Number: Repository [id number] (HP) Date:2616-96-01[address], [place] [address]OR: 03/03/2018 Secondary NOT GIVENUNK [place] Insurance:SELF PAY [facility] Number: Effective Repository Date:2018-03-03 11/25/2017 JESSICA [place] Primary JESSICA Leyva [id number] TR Insurance:ANTHEM SNODGRASSDOB: Community [address], MEDICARE SENIOR [id number] [address]Klr: ADVANTAPolicy Number: Repository [id number] (HP) Date:6839-07-34ZS [address], [place] [address]RR: 11/25/2017 Secondary NOT GIVENUNK [place] Insurance:SELF PAY [facility] Number: Effective Repository Date:2017-11-25 08/25/2017 JESSICA [place] Primary JESSICA Razoaritan SNODGRASSDOB: Insurance:[facility] SNODGRASSDOB: [facility] MCAIDPolicy Number: [id number] System [facility] Effective [address] [address] Repository [address], Date:2018-01-06 - [address], [place] 6470-00-26[place] [address]Obz: Name:CD:[id number] [facility] [address]Lhb: [address], [place] (HP) [address]HC: (HP)Tel: [phone] 06/22/2017 JESSICA [place] Primary JESSICA Leyva [id number] TR Insurance:CARESOURCE SNODGRASSDOB: [place] [address], JUST FOR [facility] [id number] Indian Health Center [address]Hln: Number: Repository [id number] (HP) Date:7428-30-44[address] [address]DV: 06/22/2017 Secondary NOT GIVENUNK [place] Insurance:SELF PAY [facility] Number: Effective Repository Date:2017-06-05 06/22/2017 JESSICA L Primary JESSICA L [place] [id number] TR Insurance:CARESOURCE SNODGRASSDOB: [address] [id number] Hospital [place] [address]Zkm: Number: Repository [id number] (HP) Date:8039-67-62OQ [address] [place] [address]AA: 06/22/2017 Secondary NOT GIVENUNK [place] Insurance:SELF PAY [facility] Number: Effective Repository Date:2017-06-22 06/19/2017 JESSICA SAABN Primary JESSICA ORTIZ [place] [id number] TR Insurance:CARESOURCE SNODGRASSDOB: [address] [id number] Hospital [place] [address]Ewr: Number: Repository [id number] (HP) Date:9831-67-94LF [address] [place] [address]UF: 06/19/2017 Secondary NOT GIVENUNK [place] Insurance:SELF PAY [facility] Number: Effective Repository Date:2017-06-08 06/05/2017 JESSICA ORTIZ Primary JESSICA ORTIZ [place] [id number] Insurance:CARESOURCE SNODGRASSDOB: [facility] [address] JUST FOR [facility] [id number], Number: Repository [place] [address]Xyw: [id number] Date:8947-54-34UR [address] () [address] [place] [address]FQ: 06/05/2017 Secondary NOT GIVENUNK [place] Insurance:SELF PAY [facility] Number: Effective Repository Date:2017-06-04 05/25/2017 Jessica Le Primary Jessica Valdesoster [id number] Insurance:CARESOURCE SnodgrassDOB: [facility] [address] JUST FOR [facility] [id number], Number: Repository [place] [address]Xrc: [id number] Date:8762-77-70XK [address]OX (BQ) [address] [address]AR: 05/25/2017 Secondary NOT GIVENUNK [place] Insurance:SELF PAY [facility] Number: Effective Repository Date:2017-05-25
== END ==
PROVIDERS: Family Provider Family Medicine Geriatric Medicine; PCP Family Medicine Geriatric Medicine; Referring Provider Family Medicine Geriatric Medicine; Visit Provider Family Medicine Geriatric Medicine
DX: M54.5 Low back pain (principal)
CPT/HCPCS: 72100

== ENCOUNTER → 2018-06-01 13:59 | Outpatient (CLI) | payer MEDICARE, SELFPAY ==
[2018-06-01 16:37] LABS: Absolute Lymphocyte Count 3.02 X10^3/ul (0.83-4.51); Absolute Neutrophil Count 5.7 X10^3/uL (2.0-7.7); Basophil# 0.08 X10^3/uL; Basophil% 0.8 % (0-1); Eosinophil# 0.11 X10^3/uL; Eosinophils% 1.1 % (0-5); Hematocrit 43.6 % (37-47); Hemoglobin 14.4 g/dl (12.0-15.0); Lymphocyte # 3.02 X10^3/ul (4.0); Lymphocyte % 31.2 % (19-41); Mean Corpuscular Hgb 30.8 pg (27.0-32.0); Mean Corpuscular Volume 93.2 fL (81-99); Monocyte# 0.76 X10^3/uL; Monocyte% 7.9 % (0-10); Neutrophil # 5.68 X10^3/uL (2.7-7.7); Neutrophil % 58.7 % (47-70); POSITIVE COUNT NO; POSITIVE DIFFERENTIAL NO; POSITIVE MORPHOLOGY NO; Platelet Count 266 K/mm3 (150-450); RBC Distribution Width CV 13.6 % (11.6-14.6); RBC Distribution Width SD 45.1 fl (35.1-43.9); Red Blood Count 4.68 M/mm3 (4.2-5.4); White Blood Count 9.7 K/mm3 (4.4-11.0)
[2018-06-01 17:09] LABS: ALB/GLOB Ratio 1.1 RATIO (0.9-2.4); AST(SGOT) 20 U/L (15-37); Alanine Aminotransfer ALT/SGPT 26 U/L (13-56); Albumin, Serum 3.9 g/dL (3.2-5.0); Alkaline Phosphatase 68 U/L (45-117); Anion Gap 7 (5-15); BUN 14 mg/dL (7-18); BUN/Creat Ratio 17.6 RATIO (10-20); Calcium,Total 8.3 mg/dL (8.5-10.1); Chloride 107 mmol/L (98-107); EST Glomerular Filtration Rate 77 mL/min (>60); Est Glom Filt Rate - Afr Amer 93 mL/min (>60); Globulin 3.5 g/dL (2.2-4.2); Glucose 84 mg/dL (74-106); Potassium 3.8 mmol/L (3.5-5.1); Protein, Total 7.4 g/dL (6.4-8.2); Sodium Level 141 mmol/L (136-145); Thyroid Stim Hormone (TSH) 4.07 uIU/mL (0.358-3.74)
[2018-06-01 17:10] LABS: Vitamin D,25 Hydroxy 31.8 ng/mL (29.95-100.01)
[2018-06-03 12:49] LABS: Hep C Antibodies <0.1 s/co ratio (0.0-0.9)
== END ==
PROVIDERS: Family Provider Family Medicine Geriatric Medicine; PCP Family Medicine Geriatric Medicine; Visit Provider Family Medicine Geriatric Medicine
DX: E55.9 Vitamin D deficiency, unspecified (principal); R53.83 Other fatigue
CPT/HCPCS: 36415; 80053; 82306; 84443; 85025; 86803

== ENCOUNTER 2018-10-24 02:08 | Emergency (ER) | payer MEDICARE, SELFPAY ==
[2018-10-24 02:09] VITALS: BP 184/89; PULSE 91; RESP 20; TEMP 36.4; O2SAT 98; BMI 17.4
[2018-10-24 02:25] LABS: Absolute Lymphocyte Count 1.57 X10^3/uL (0.83-4.51); Absolute Neutrophil Count 18.8 X10^3/uL (2.0-7.7); Basophil# 0.07 X10^3/uL; Basophil% 0.3 % (0-1); Eosinophil# 0.22 X10^3/uL; Hematocrit 45.6 % (37-47); Hemoglobin 14.9 g/dL (12.0-15.0); Lymphocyte # 1.57 X10^3/ul (4.0); Lymphocyte % 7.2 % (19-41); Mean Corp Hgb Conc 32.7 g/dL (32-36); Mean Corpuscular Hgb 29.1 pg (27.0-32.0); Mean Corpuscular Volume 89.1 fL (81-99); Mean Platelet Vol. 9.1 fl (6.2-12.0); Monocyte# 1.03 X10^3/uL; Monocyte% 4.7 % (0-10); NRBC Flagged by Analyzer 0 % (0-5); Neutrophil # 18.77 X10^3/uL (2.7-7.7); Neutrophil % 86.2 % (47-70); Platelet Count 411 K/mm3 (150-450); RBC Distribution Width CV 13.3 % (11.6-14.6); RBC Distribution Width SD 43.7 fl (35.1-43.9); Red Blood Count 5.12 M/mm3 (4.2-5.4); White Blood Count 21.8 K/mm3 (4.4-11.0)
--- NOTE | 2018-10-24 02:32 | CT_ITS ---
HISTORY: ABD PAIN AND EMESIS WITH DIARRHEA, ELEVATED WBC, HX SMA STENT 07-30-2016, GB TECHNIQUE: CT angiogram images of the abdomen and pelvis were obtained with 100 mL Isovue 370 IV contrast. Enteric contrast was not administered. 3D MIP images reviewed to aid in vascular evaluation. A radiation dose optimization technique was used for this scan. Number of images including paperwork: 370 COMPARISON: CTA 06/17/2016. Duplex ultrasound 06/19/2017, report not available at this time. FINDINGS: AORTA: Mild to moderate atherosclerotic plaque. VISCERAL ARTERIES: Stents are present in the proximal celiac and superior mesenteric arteries, both of which are occluded. The celiac artery stent occlusion appears similar to the previous CTA. The superior mesenteric artery stent occlusion is new compared to the previous ultrasound although there did appear to be a stenosis at that time. There is hypertrophy of the inferior mesenteric artery, the origin of which appears to have a high-grade stenosis, severity of stenosis difficult to accurately measure due to small vessel size. Patent bilateral renal arteries. ILIAC ARTERIES: Moderate atherosclerotic plaque. Approximate 40% stenosis of the proximal right external iliac artery. VISUALIZED FEMORAL ARTERIES: Mild atherosclerotic plaque. LOWER CHEST: 5 mm partially visually is right lower lobe lung nodule, nonspecific and not definitely seen in the field of view of the previous study. Severe emphysema. LIVER AND BILIARY TRACT: Segment 4 hypodense liver lesion is unchanged. No biliary dilatation. Gallbladder appears to be surgically absent. SPLEEN: Unremarkable. PANCREAS: Unremarkable. ADRENAL GLANDS: Nodular thickening of the adrenal glands appears similar and more prominent on the left measuring 2 cm. KIDNEYS/URETERS: Unremarkable. BOWEL: Unremarkable. LYMPH NODES: No pathologic appearing adenopathy. PERITONEUM, RETROPERITONEUM AND MESENTERY: Left retroperitoneal collateral veins. FREE FLUID: No significant free fluid. FREE AIR: None. PELVIS: Unremarkable bladder. Hysterectomy. OSSEOUS AND SOFT TISSUE STRUCTURES: No acute skeletal findings. CT/CT ANGIO ABD&PEL W/O&W/DYE IMPRESSION: 1. 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 Chronic mesenteric ischemia likely present. 2. Right lower lobe lung nodule partially visualized. CT chest recommended for further evaluation. 3. Additional findings above. Individualized dose optimization techniques were used for this CT. at 0422 Reported and signed by: Celia Carter MD Electronically Signed: Celia Carter MD at 4:22 EDT Tel , Service support ,
--- NOTE | 2018-10-24 02:34 | ED.VIS.GI ---
History of Present Illness Chief Complaint: Abd Pain Informant: Patient - Abdominal Pain/Flank Pain Onset: Weeks - 2-3 Context: Gradual Onset Timing: Continuous - today, and much worse last couple hrs, Intermittent Quality: Aching, Burning Location: - - periumbilical Current Severity: Severe Maximum Severity: Severe Worsened by: Nothing Relieved by: Nothing - Nausea/Vomiting/Emesis GI Symptom: Nausea, Vomiting - dry heaves only Onset: Today Severity: Severe - Diarrhea/Melena/Hematochezia GI Symptom: Diarrhea - several bouts, Hematochezia Stool Quality: [place] per rectum - small amt last episode, pt thinks, but not sure. Negative for: Black, Maroon Associated Symptoms: Negative for: Dysuria, Frequency, Hematuria, Urgency Narrative: Patient with a history of mesenteric artery stenting, initially at [facility] and later here by Dr. Kay, states that she is supposed to be on aspirin but never really started it because after her first stent, she had severe lower GI bleeding and had to be sent back up there and has been worried about bleeding. She denies any numbness or pain into her legs tonight. She is having severe abdominal discomfort that does not radiate or migrate. History of cholecystectomy, hysterectomy. - Past Medical History (1) Depression Status: Chronic (2) Anxiety Status: Chronic (3) Hyperlipidemia Status: Chronic Past Medical History - Allergies and Home Meds Allergies/Adverse Reactions: Allergies morphine Allergy (Verified 06/18/17 09:17) Itching Primary Care Physician: Michael Oliveira Chi, MD [Primary Care Provider] - Smoking Status: Current every day smoker Review of Systems General: Reports: Malaise. Denies: Chills, Fever, Sweats Eyes: Denies: Visual changes - bilaterally, Diplopia ENT: Denies: Rhinorrhea, Sore throat Cardiovascular: Denies: Chest pain, Palpitations Respiratory: Denies: Dyspnea, Cough, Dyspnea on exertion Gastrointestinal: Reports: Abdominal pain, Nausea, Vomiting, Diarrhea, Hematochezia. Denies: Melena Genitourinary: Denies: Dysuria, Hematuria, Frequency Musculoskeletal: Denies: Back pain, Swelling, Extremity Pain Skin: Denies: Rash, Wounds Neurological: Denies: Headache, Weakness, Numbness Physical Exam Vital Signs/Narrative: Vital Signs Temp Pulse Resp BP Pulse Ox 10/24/18 02:09 97.5 F L 91 20 H 184/89 H 98 Inital Vital Signs reviewed: Yes General: Well nourished, Well developed, No Acute Distress Head: Normocephalic, Atraumatic Eyes: Perrl, EOMI ENT: Moist mucous membranes, No rhinorrhea Neck: Supple, Nontender Cardiovascular: Regular rate, Regular rhythm, No murmurs, - - 2+/4 dorsalis pedis and radial pulses bilaterally, symmetric. Respiratory: No distress, CTA bilaterally, Chest nontender Abdomen: Soft, Nontender, Nondistended, Normal bowel sounds. Negative for: Pulsatile mass Back: Nontender, Normal Inspection Extremities: Nontender, No edema Skin: Normal color, No rash Neurological: Alert, Oriented x3, Cranial nerves II-XII grossly intact, Normal Strength, Normal Sensation Psychological: Normal affect, Normal Mood Diagnostic/Tx/Re-eval Impressions Abdomen/Pelvis CTA 10/24/18 02:32 IMPRESSION: 1. 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 Chronic mesenteric ischemia likely present. 2. Right lower lobe lung nodule partially visualized. CT chest recommended for further evaluation. 3. Additional findings above. Individualized dose optimization techniques were used for this CT. at 0422 Reported and signed by: Celia Carter MD Electronically Signed: Celia Carter MD at 4:22 EDT Tel , Service support , 10/24/18 02:32 CT ANGIO ABD&PEL W/O&W/DYE [CT] Stat Laboratory Results 10/24/18 10/24/18 10/24/18 02:22 02:22 02:22 WBC 21.8 H RBC 5.12 Hgb 14.9 Hct 45.6 MCV 89.1 MCH 29.1 MCHC 32.7 RDW Std Deviation 43.7 RDW Coeff of Verna 13.3 Plt Count 411 MPV 9.1 Immature Gran % (Auto) 0.600 Neut % (Auto) 86.2 H Lymph % (Auto) 7.2 L [place] % (Auto) 4.7 Eos % (Auto) 1.0 Baso % (Auto) 0.3 Absolute Neuts (auto) 18.8 H Absolute Lymphs (auto) 1.57 Absolute Nucleated RBC 0.00 Nucleated RBC % 0 Sodium 134 L Potassium 3.7 Chloride 103 Carbon Dioxide 23.0 Anion Gap 8 BUN 18 Creatinine 1.03 H Estim Creat Clear Calc 38.00 Est GFR (MDRD) Af Amer 69 Est GFR (MDRD) Non-Af 57 L BUN/Creatinine Ratio 17.5 Glucose 172 H Calcium 9.2 Total Bilirubin 0.50 Direct Bilirubin 0.11 AST 55 H ALT 25 Alkaline Phosphatase 104 Total Protein 8.5 H Albumin 3.9 Globulin 4.6 H Urine Color Urine Clarity Urine pH Ur Specific [place] Urine Protein Urine Glucose (UA) Urine Ketones Urine Occult Blood Urine Nitrite Urine Bilirubin Urine Urobilinogen Ur Leukocyte Esterase Urine RBC Urine WBC Ur Squamous Epith Cells Urine Bacteria Urine Mucus 10/24/18 04:20 WBC RBC Hgb Hct MCV MCH MCHC RDW Std Deviation RDW Coeff of Verna Plt Count MPV Immature Gran % (Auto) Neut % (Auto) Lymph % (Auto) [place] % (Auto) Eos % (Auto) Baso % (Auto) Absolute Neuts (auto) Absolute Lymphs (auto) Absolute Nucleated RBC Nucleated RBC % Sodium Potassium Chloride Carbon Dioxide Anion Gap BUN Creatinine Estim Creat Clear Calc Est GFR (MDRD) Af Amer Est GFR (MDRD) Non-Af BUN/Creatinine Ratio Glucose Calcium Total Bilirubin Direct Bilirubin AST ALT Alkaline Phosphatase Total Protein Albumin Globulin Urine Color Straw Urine Clarity Sl. Cloudy Urine pH 7.0 Ur Specific [place] 1.010 Urine Protein 15 H Urine Glucose (UA) 100 H Urine Ketones 5 H Urine Occult Blood 10 H Urine Nitrite Negative Urine Bilirubin Negative Urine Urobilinogen Normal Ur Leukocyte Esterase Negative Urine RBC 0-5 SEEN Urine WBC 0 SEEN Ur Squamous Epith Cells 0 SEEN Urine Bacteria 0 SEEN Urine Mucus 0 SEEN - Medical Decision Making Patient is not especially anemic, she has a significant leukocytosis, and with her prior history of mesenteric artery stenting, abdominal pain out of proportion to exam, and noncompliance with antiplatelet medications, CT angiography of the abdomen and pelvis was performed. This indeed shows occlusion of her stents. She has stents in her SMA and COSMO. Radiologist interpretation is that chronic mesenteric ischemia is likely present. Given her history, I suspect she is having some degree of acute ischemia. Lactate is ordered and pending, as is PTT in preparation for possible heparin, but she stated that just prior to coming she had a large amount of bright red blood per rectum, or so she thought. She states she really is not sure. I performed a rectal, there was no gross blood or melena, it was sent for Hemoccult, which is positive. Her vitals are stable except for being hypertensive and she is feeling a little better after a second dose of fentanyl. We do not have vascular available this weekend. Since she has recent but not an active lower GI bleeding. I feel she would be most appropriately evaluated by vascular specialist, which is not available at this facility. She had her initial stenting done at [facility], she is agreeable to go back there if accepted. I discussed with Dr. Teran at [facility], he advises starting heparin as the benefits of it outweigh the risks of in her condition and situation. I discussed this with the patient as well. He accepts her to [facility] and the plan is transfer by ground. Critical care time (excluding procedures): 30-74 minutes - 33 minutes, including discussing with patient, multiple evaluations in direct patient care at the bedside, discussing with teamcenter consultant, arranging transfer ED Disposition - Plan for ED Patient: Disposition: [facility] - Main Diagnosis: Acute mesenteric ischemia, Occlusion of stent of peripheral artery, Lower GI bleeding Referrals: Michael Oliveira Chi, MD [Primary Care Provider] -
[2018-10-24 02:38] LABS: Anion Gap 8 (5-15); BUN 18 mg/dL (7-18); BUN/Creat Ratio 17.5 RATIO (10-20); Calcium,Total 9.2 mg/dL (8.5-10.1); Chloride 103 mmol/L (98-107); Creatinine, Serum 1.03 mg/dL (0.55-1.02); EST Glomerular Filtration Rate 57 mL/min (>60); Est Glom Filt Rate - Afr Amer 69 mL/min (>60); Glucose 172 mg/dL (74-106); Potassium 3.7 mmol/L (3.5-5.1); Sodium Level 134 mmol/L (136-145)
[2018-10-24] MEDS: fentaNYL 100 MCG/2 ML Ampul 50 MCG IV ×4 (03:01→08:31)
[2018-10-24] MEDS: Ondansetron 4 MG/2 ML Vial IV ×2 (03:01→06:59)
[2018-10-24] MEDS: 0.9% Normal Saline 1,000 ML 999 ML IV (03:01)
[2018-10-24 03:07] LABS: AST(SGOT) 55 U/L (15-37); Alanine Aminotransfer ALT/SGPT 25 U/L (13-56); Albumin, Serum 3.9 g/dL (3.2-5.0); Alkaline Phosphatase 104 U/L (45-117); Bilirubin, Direct 0.11 mg/dL (0.00-0.30); Globulin 4.6 g/dL (2.2-4.2); Protein, Total 8.5 g/dL (6.4-8.2)
[2018-10-24 03:40] VITALS: TEMP 36.4
[2018-10-24 04:24] LABS: Bacteria 0 SEEN /hpf (None Seen); Mucous, Urine 0 SEEN /hpf (<or=2+); Squamous Epithelial Cells - UA 0 SEEN /hpf (5-10); White Blood Cells 0 SEEN /hpf (0-5)
[2018-10-24 04:40] LABS: Color, Urine Straw (Yellow); Glucose, Dipstick 100 mg/dl (Normal); Ketone-Dipstick 5 mg/dl (Negative); Leukocyte Esterase-Dipstick Negative /ul (Negative); Nitrite-Dipstick Negative (Negative); Occult Blood-Urine 10 /ul (Negative); Protein-Dipstick 15 mg/dl (Negative); Urine Bilirubin Dipstick Negative (Negative); Urine Clarity Sl. Cloudy (Clear); Urine Urobilinogen Normal (Normal)
[2018-10-24 04:49] LABS: Red Blood Cells-Urine 0-5 SEEN /hpf (0-5)
[2018-10-24 05:25] LABS: Partial Thromboplast Time 29.3 Seconds (24.1-36.2)
--- NOTE | 2018-10-24 06:05 | ED.RN ---
DR BLANCO AWARE OF LACTIC ACID 3.0.
[2018-10-24 06:28] VITALS: BP 177/98; PULSE 90; RESP 24; TEMP 36.7; O2SAT 95
[2018-10-24] MEDS: Heparin Injection (Vial) 5,000 UNIT/ML VIAL 3500 UNIT IV (06:50)
[2018-10-24] MEDS: HEPARIN/D5w 25,000 UNITS 25,000 UNITS/250 ML IV.SOLN. 7 UNITS IV (06:55)
[2018-10-24 06:59] LABS: International Normalized Ratio 1.1; Prothrombin Time (Protime)PT. 14.1 SECONDS (11.7-14.9)
[2018-10-24 07:53] VITALS: BP 179/95; PULSE 88; RESP 22; O2SAT 99
[2018-10-24 08:26] VITALS: BP 172/88; PULSE 86; RESP 27; O2SAT 95
[2018-10-24 09:22] LABS: Reflex Lactate? Y
== END 2018-10-24 08:54 | disposition short-term general hospital (02) ==
PROVIDERS: Emergency Provider Emergency Medicine; Family Provider Family Medicine Geriatric Medicine; PCP Family Medicine Geriatric Medicine
DX: K55.059 Acute (reversible) ischemia of intestine, part and extent unspecified (principal); T82.858A Stenosis of other vascular prosthetic devices, implants and grafts, initial encounter; R91.1 Solitary pulmonary nodule; K92.1 Melena; Z91.14 Patient's other noncompliance with medication regimen; F32.9 Major depressive disorder, single episode, unspecified; F41.9 Anxiety disorder, unspecified; E78.5 Hyperlipidemia, unspecified; Z90.49 Acquired absence of other specified parts of digestive tract; Z79.899 Other long term (current) drug therapy; F17.200 Nicotine dependence, unspecified, uncomplicated
CPT/HCPCS: 74174; 80048; 80076; 81001; 82274; 83605; 85025; 85610; 85730; 96361; 96365; 96366; 96374; 96375; 96376; 99285; J7030; Q9967; A4216; J2405

== ENCOUNTER → 2018-11-10 | Outpatient (CLI) | payer MEDICARE, SELFPAY ==
[2018-10-24 02:09] VITALS: BMI 17.4
== END | disposition home or self-care (01) ==
LOC: POLAB3 16:27
PROVIDERS: Family Provider Family Medicine Geriatric Medicine; PCP Family Medicine Geriatric Medicine; Visit Provider Family Medicine Geriatric Medicine
DX: D72.829 Elevated white blood cell count, unspecified (principal)

== ENCOUNTER → 2018-12-01 | Outpatient (CLI) | payer MEDICARE, SELFPAY ==
[2018-12-01 15:40] LABS: Absolute Lymphocyte Count 2.66 X10^3/uL (0.83-4.51); Absolute Neutrophil Count 7.1 X10^3/uL (2.0-7.7); Basophil% 0.9 % (0-1); Eosinophil# 0.22 X10^3/uL; Hematocrit 38.9 % (37-47); Hemoglobin 11.8 g/dL (12.0-15.0); Lymphocyte # 2.66 X10^3/ul (4.0); Lymphocyte % 24.4 % (19-41); Mean Corp Hgb Conc 30.3 g/dL (32-36); Mean Corpuscular Hgb 27.9 pg (27.0-32.0); Mean Platelet Vol. 9.3 fl (6.2-12.0); Monocyte# 0.78 X10^3/uL; Monocyte% 7.2 % (0-10); NRBC Flagged by Analyzer 0 % (0-5); Neutrophil # 7.05 X10^3/uL (2.7-7.7); Neutrophil % 64.9 % (47-70); Platelet Count 428 K/mm3 (150-450); RBC Distribution Width CV 14.9 % (11.6-14.6); RBC Distribution Width SD 50.3 fl (35.1-43.9); Red Blood Count 4.23 M/mm3 (4.2-5.4); White Blood Count 10.9 K/mm3 (4.4-11.0)
[2018-12-01 16:06] LABS: Vitamin D,25 Hydroxy 25.9 ng/mL (29.95-100.01)
[2018-12-01 16:15] LABS: ALB/GLOB Ratio 0.9 RATIO (0.9-2.4); AST(SGOT) 16 U/L (15-37); Alanine Aminotransfer ALT/SGPT 26 U/L (13-56); Albumin, Serum 3.4 g/dL (3.2-5.0); Alkaline Phosphatase 107 U/L (45-117); Anion Gap 5 (5-15); BUN 15 mg/dL (7-18); BUN/Creat Ratio 20.1 RATIO (10-20); Calcium,Total 8.6 mg/dL (8.5-10.1); Chloride 108 mmol/L (98-107); Creatinine, Serum 0.75 mg/dL (0.55-1.02); EST Glomerular Filtration Rate 83 mL/min (>60); Est Glom Filt Rate - Afr Amer 100 mL/min (>60); Globulin 3.8 g/dL (2.2-4.2); Glucose 112 mg/dL (74-106); Potassium 3.9 mmol/L (3.5-5.1); Protein, Total 7.2 g/dL (6.4-8.2); Sodium Level 140 mmol/L (136-145); Thyroid Stim Hormone (TSH) 2.49 uIU/mL (0.358-3.74)
== END | disposition home or self-care (01) ==
LOC: POLAB3 13:24
PROVIDERS: Family Provider Family Medicine Geriatric Medicine; PCP Family Medicine Geriatric Medicine; Visit Provider Family Medicine Geriatric Medicine
DX: I10 Essential (primary) hypertension (principal); E55.9 Vitamin D deficiency, unspecified
CPT/HCPCS: 36415; 80053; 82306; 84443; 85025

== ENCOUNTER → 2018-12-09 07:58 | Outpatient (CLI) | payer MEDICARE, SELFPAY ==
--- NOTE | 2018-12-09 08:01 | CT_ITS ---
HISTORY: LUNG MASS TECHNIQUE: Helically acquired images were obtained of the chest following the intravenous administration of 100CC ml of Isovue 300 Iodinated contrast. as per pulmonary angiogram protocol with 2D MIP reconstructions. A radiation dose optimization technique was used for this scan. COMPARISON: Low dose screening chest CT from May 28, 2016 FINDINGS: # of images incl. paperwork: [phone] Pulmonary emphysema with pulmonary hyperexpansion persists. Disease is more severe within the lung apices. There is some airspace disease throughout all lobes of the lungs, greatest in the left upper lobe. This is new. The largest area of focal airspace disease is within the apical portions of the left lower lobe. This is also new. Another focal area of disease that is slightly denser and more consolidated, but still barely consolidated, is within the right upper lobe posteriorly. No pleural effusions. Calcification of the tracheobronchial tree. The heart is not enlarged. Left ventricular feldman are thickened. Atherosclerotic disease within the elongated aortic arch without aneurysm or dissection. No pulmonary emboli. There is some mild mediastinal adenopathy. No axillary adenopathy. No rib lesions are perceived. Kyphosis. Since many Schmorl's node invaginations. Some degenerative disc disease. Facets are adequately aligned. Patient has a celiac artery origin stent. Patient has a SMA origin stent. The celiac artery stent appears to have fractured. This fracture causes some malalignment to the stent and contributes to a fairly significant stenosis, greater than 80% to the celiac artery origin. The patient has a celiac artery and a SMA bypass graft above both stents. 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 The aneurysm of this bypass graft is dilated to 17 mm in transverse dimensions. The aorta at that level is only 22 mm. The left adrenal gland is enlarged and heterogeneous. The thickening and enlargement to the left adrenal gland is a 2.3 x 1.6 cm. This enlarged area has a central density of 40 Hounsfield units. There is some thickening and enlargement of the right adrenal gland as well. Comparison to the previous CT of October 24, 2018 demonstrates a nodularity to the lung disease. The adrenal glands were better demonstrated on the previous study and were enlarged at that time as well. The aorta SMA, aortoceliac trunk bypass graft are new since October 24, [address]/Chest WITH Contrast IMPRESSION: Multiple areas of airspace disease throughout the emphysematous lungs. Disease is most severe within the apical portions of the left lower lobe. A more nodular type area of lung disease is present within the right upper lobe. There are some nodules within the left upper lobe as well. This airspace disease and this nodular disease is new since the screening CT scan of May 28, 2016. The multifocal nature of this lung disease suggest either metastatic disease or an infectious nature. The nodule posteriorly within the right lower lobe from the CT scan of the abdomen and pelvis of October 24, 2018 has mostly resolved, suggesting that it the nodule within the right lower lobe on the previous CT is actually resolving infection. The adrenal disease is suspicious for metastatic disease of unknown primary. Since the October 24, 2018 study, the patient has had a bypass of the SMA and celiac trunk with a graft from the abdominal/thoracic aorta. Individualized dose optimization techniques were used for this CT. at 0024 Reported and signed by: Antony Verduzco MD Electronically Signed: Antony Verduzco MD at 0:23 EDT Tel , Service support ,
== END ==
PROVIDERS: Family Provider Family Medicine Geriatric Medicine; PCP Family Medicine Geriatric Medicine; Referring Provider Family Medicine Geriatric Medicine; Visit Provider Family Medicine Geriatric Medicine
DX: R91.8 Other nonspecific abnormal finding of lung field (principal)
CPT/HCPCS: 71260; Q9967

== ENCOUNTER → 2019-01-06 12:50 | Outpatient (CLI) | payer MEDICARE, SELFPAY ==
[2019-01-06 16:08] LABS: Absolute Lymphocyte Count 3.18 X10^3/uL (0.83-4.51); Absolute Neutrophil Count 5.9 X10^3/uL (2.0-7.7); Basophil# 0.09 X10^3/uL; Basophil% 0.9 % (0-1); Eosinophil# 0.11 X10^3/uL; Eosinophils% 1.1 % (0-5); Hematocrit 38.7 % (37-47); Hemoglobin 11.8 g/dL (12.0-15.0); Lymphocyte # 3.18 X10^3/ul (4.0); Lymphocyte % 31.3 % (19-41); Mean Corp Hgb Conc 30.5 g/dL (32-36); Mean Corpuscular Hgb 27.3 pg (27.0-32.0); Mean Corpuscular Volume 89.6 fL (81-99); Mean Platelet Vol. 9.9 fl (6.2-12.0); Monocyte# 0.81 X10^3/uL; NRBC Flagged by Analyzer 0 % (0-5); Neutrophil # 5.92 X10^3/uL (2.7-7.7); Neutrophil % 58.3 % (47-70); Platelet Count 325 K/mm3 (150-450); RBC Distribution Width CV 14.5 % (11.6-14.6); RBC Distribution Width SD 47.8 fl (35.1-43.9); Red Blood Count 4.32 M/mm3 (4.2-5.4); White Blood Count 10.2 K/mm3 (4.4-11.0)
[2019-01-06 16:27] LABS: International Normalized Ratio 1.1; Partial Thromboplast Time 29.5 Seconds (24.1-36.2); Prothrombin Time (Protime)PT. 13.7 SECONDS (11.7-14.9)
== END ==
PROVIDERS: Family Provider Family Medicine Geriatric Medicine; PCP Family Medicine Geriatric Medicine; Referring Provider Family Medicine Geriatric Medicine; Visit Provider Family Medicine Geriatric Medicine
DX: E27.8 Other specified disorders of adrenal gland (principal)
CPT/HCPCS: 36415; 85025; 85610; 85730

== ENCOUNTER → 2019-01-07 07:28 | Outpatient (CLI) | payer MEDICARE, SELFPAY ==
--- NOTE | 2019-01-07 07:32 | CT_ITS ---
STUDY: CT ABDOMEN WITHOUT CONTRAST REASON FOR EXAM: Female, 68 years old. The patient was scheduled for percutaneous biopsy of the left adrenal nodule. RADIATION DOSAGE (If Supplied By Facility): CTDIvol = ( 8.26 ) mGy, DLP = ( 133.23 ) mGycm TECHNIQUE: Transaxial images were obtained without intravenous contrast, and oral contrast. Sagittal and coronal images were reconstructed. Individualized dose optimization techniques were used for this CT. COMPARISON: Comparison is made with prior study dated October 24, 2018. FINDINGS: The patient was placed in the prone position. The left adrenal nodule was not accessible to percutaneous biopsy due to the presence of the left lower lobe as well as the spinous process of a transverse of the vertebrae. CT/Abdomen without IV Contrast IMPRESSION: The patient was scheduled for percutaneous left adrenal biopsy. There is no safe access for the biopsy. Electronically Signed: Artemio Barnes, at 11:45 EDT , Service support ,
[2019-01-07 08:03] VITALS: BP 137/58; PULSE 69; RESP 14; TEMP 36.4; O2SAT 100; BMI 17.6
--- NOTE | 2019-01-07 09:10 | NURSING ---
UNABLE TO PERFORM BIOPSY DUE TO LOCATION OF MASS IN RELATION TO LUNG. PT INFORMED AND SHOWN ON CT SCAN BY MACY HOOK. PT VERBALIZED UNDERSTANDING.
[2019-01-07 09:12] VITALS: BP 145/87; PULSE 72; RESP 16; O2SAT 100
--- NOTE | 2019-01-07 09:19 | NURSING ---
PT AMBULATED TO ELEVATOR. AWARE DR RIGGS WILL BE NOTIFIED THAT CT BIOPSY WAS UNABLE TO BE PERFORMED. PT CALLED SISTER FOR RIDE.
== END ==
PROVIDERS: Family Provider Family Medicine Geriatric Medicine; PCP Family Medicine Geriatric Medicine; Referring Provider Family Medicine Geriatric Medicine; Visit Provider Family Medicine Geriatric Medicine
DX: E27.8 Other specified disorders of adrenal gland (principal)
CPT/HCPCS: 74150; J7040; A4216

== ENCOUNTER → 2019-01-17 10:55 | Outpatient (CLI) | payer MEDICARE, SELFPAY ==
[2019-01-07 08:03] VITALS: BMI 17.6
--- NOTE | 2019-01-17 11:30 | PET_ITS ---
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 COMPARISON EXAMINATION: CT of the chest report dated 12/09/18, CT of the abdomen and pelvis biopsy report dated 01/07/19. NON-INDEX LESION SIZE SUV INTERPRETATION Upper abdomen abdominal aorta, vascular graft 4.3 (max) May represent normal postsurgical change, if prosthetic graft sepsis is suspected, correlation with labeled leukocyte imaging recommended TECHNIQUE: Following the intravenous administration of 17.66 mCi of F-18 deoxyglucose via the left antecubital fossa, multiplanar image acquisitions of the neck, chest, abdomen and pelvis to level of mid thigh, obtained at one hour post radiopharmaceutical administration contemporaneously interpreted with the current CT of the neck, chest, abdomen and pelvis to level of mid thigh, dated 01/17/[address] of the chest report dated 12/09/18, CT of the abdomen and pelvis biopsy report dated 01/07/19 reveal: SERUM GLUCOSE LEVEL: 99 mg/dl. HEIGHT: 63 inches. WEIGHT: 100 lbs. FINDINGS: 1. Heterogeneous enhanced glucose metabolism is defined in the upper midline abdomen, which appears contiguous to the abdominal aorta and apparent aneurysm of bypass graft generating a calculated maximum standard uptake value of 4.3. 2. Normal physiologic distribution of the radiopharmaceutical is apparent in the hepatic (2.7) and splenic parenchyma, both renal units, bladder and visualized intestinal tract. There is uniform distribution of the radiopharmaceutical concentration defined in the visualized cerebellar hemispheres and cerebral cortical structures.? Diffuse intestinal tract activity is noted throughout all four quadrants of the abdominal-pelvic retroperitoneum, mesentery consistent with normal physiologic distribution of the radiopharmaceutical. Prominent radiopharmaceutical concentration is demonstrated in the ascending and descending thoracic aorta commensurate with activated leukocytes associated with atherosclerotic plaque formation. (Janett et al, Clinical Nuclear Medicine 29:93, 2004). The right and left adrenal glands are prominent in size without evidence of quantitatively significant enhanced FDG uptake. There is a linear increase in radiopharmaceutical concentration defined in the mid-lower abdominal-lower pelvic anterior wall commensurate with postsurgical changes. Pertinent CT findings are as follows. CHEST: Atherosclerotic calcification is defined in the thoracic aorta without evidence of dilatation, aneurysm formation. Bilateral subcentimeter axillary soft tissue densities with fatty hilus formation are non-glucose avid. There are no parenchymal densities-nodules defined in the right-left hemithorax demonstrating discernible, quantitatively significant increased glucose metabolism. There are no parenchymal densities-nodules defined in the right-left hemithorax demonstrating discernible, quantitatively significant increased glucose metabolism. Emphysematous changes are noted in the bilateral upper-mid lung zones. ABDOMEN AND PELVIS: Atherosclerotic calcification is defined in the abdominal aorta without evidence of dilatation, aneurysm formation. Pelvic arterial calcification is observed. Stent placement is noted in the distribution of the apparent superior mesenteric artery. Right-left subcentimeter inguinal soft tissue densities are ametabolic. The uterus appears surgically absent. The gallbladder is not clearly defined. SKELETAL: Degenerative changes defined in the cervical, thoracic and lumbar spine demonstrate no evidence for glucose hypermetabolism. PET/PET/CT Tumor Base -Thigh Init IMPRESSION: 1. Increased glucose concentration observed in the upper abdomen contiguous to the abdominal aorta and apparent graft placement is most consistent with activated leukocytes associated with postsurgical change. If prosthetic graft sepsis is a diagnostic consideration, correlation with labeled leukocyte imaging is recommended. 2. Meticulous attention paid to the left and right adrenal glands demonstrates no evidence of quantitatively significant enhanced FDG uptake indicative of neoplastic infiltration. Electronic Signature Nando Alcocer D.O. Electronically Signed: Nando Alcocer DO at 22:32 EDT Tel , Service support ,
== END ==
PROVIDERS: Family Provider Family Medicine Geriatric Medicine; PCP Family Medicine Geriatric Medicine; Referring Provider Family Medicine Geriatric Medicine; Visit Provider Family Medicine Geriatric Medicine
DX: D44.12 Neoplasm of uncertain behavior of left adrenal gland (principal)
CPT/HCPCS: 78815; A9552

== ENCOUNTER → 2019-06-02 15:35 | Outpatient (CLI) | payer MEDICARE, SELFPAY ==
[2019-01-07 08:03] VITALS: BMI 17.6
[2019-06-02 16:53] LABS: Absolute Lymphocyte Count 2.99 X10^3/uL (0.83-4.51); Absolute Neutrophil Count 6.8 X10^3/uL (2.0-7.7); Basophil% 0.9 % (0-1); Eosinophil# 0.07 X10^3/uL; Eosinophils% 0.6 % (0-5); Hematocrit 43.8 % (37-47); Hemoglobin 13.8 g/dL (12.0-15.0); Lymphocyte # 2.99 X10^3/ul (4.0); Lymphocyte % 27.7 % (19-41); Mean Corp Hgb Conc 31.5 g/dL (32-36); Mean Corpuscular Hgb 27.2 pg (27.0-32.0); Mean Corpuscular Volume 86.2 fL (81-99); Monocyte# 0.83 X10^3/uL; Monocyte% 7.7 % (0-10); NRBC Flagged by Analyzer 0 % (0-5); Neutrophil # 6.75 X10^3/uL (2.7-7.7); Neutrophil % 62.5 % (47-70); Platelet Count 318 K/mm3 (150-450); RBC Distribution Width CV 15.8 % (11.6-14.6); RBC Distribution Width SD 49.8 fl (35.1-43.9); Red Blood Count 5.08 M/mm3 (4.2-5.4); White Blood Count 10.8 K/mm3 (4.4-11.0)
[2019-06-02 17:15] LABS: Vitamin D,25 Hydroxy 21.3 ng/mL
[2019-06-02 17:24] LABS: AST(SGOT) 15 U/L (15-37); Alanine Aminotransfer ALT/SGPT 23 U/L (13-56); Alkaline Phosphatase 92 U/L (45-117); Anion Gap 6 (5-15); BUN 16 mg/dL (7-18); BUN/Creat Ratio 21.3 RATIO (10-20); Calcium,Total 9.1 mg/dL (8.5-10.1); Chloride 107 mmol/L (98-107); Creatinine, Serum 0.75 mg/dL (0.55-1.02); EST Glomerular Filtration Rate 82 mL/min (>60); Est Glom Filt Rate - Afr Amer 99 mL/min (>60); Glucose 87 mg/dL (74-106); Potassium 3.8 mmol/L (3.5-5.1); Sodium Level 141 mmol/L (136-145); Thyroid Stim Hormone (TSH) 4.85 uIU/mL (0.358-3.74)
== END ==
PROVIDERS: PCP Family Medicine Geriatric Medicine; Visit Provider Family Medicine Geriatric Medicine
DX: I10 Essential (primary) hypertension (principal); E55.9 Vitamin D deficiency, unspecified
CPT/HCPCS: 36415; 80053; 82306; 84443; 85025

== ENCOUNTER → 2019-12-08 11:57 | Outpatient (CLI) | payer MEDICARE, SELFPAY ==
[2019-01-07 08:03] VITALS: BMI 17.6
[2019-12-08 12:47] LABS: Absolute Neutrophil Count 6.9 X10^3/uL (2.0-7.7); Basophil# 0.06 X10^3/uL; Basophil% 0.6 % (0-1); Eosinophil# 0.12 X10^3/uL; Eosinophils% 1.2 % (0-5); Hematocrit 47.2 % (37-47); Lymphocyte % 24.1 % (19-41); Mean Corp Hgb Conc 31.8 g/dL (32-36); Mean Corpuscular Hgb 29.1 pg (27.0-32.0); Mean Corpuscular Volume 91.7 fL (81-99); Mean Platelet Vol. 10.5 fl (6.2-12.0); Monocyte# 0.74 X10^3/uL; Monocyte% 7.1 % (0-10); NRBC Flagged by Analyzer 0 % (0-5); Neutrophil # 6.88 X10^3/uL (2.7-7.7); Neutrophil % 66.4 % (47-70); Platelet Count 304 K/mm3 (150-450); RBC Distribution Width CV 14.6 % (11.6-14.6); Red Blood Count 5.15 M/mm3 (4.2-5.4); White Blood Count 10.4 K/mm3 (4.4-11.0)
[2019-12-08 13:25] LABS: AST(SGOT) 20 U/L (15-37); Alanine Aminotransfer ALT/SGPT 21 U/L (13-56); Albumin, Serum 3.9 g/dL (3.2-5.0); Alkaline Phosphatase 84 U/L (45-117); Anion Gap 6 (5-15); BUN 15 mg/dL (7-18); BUN/Creat Ratio 21.9 RATIO (10-20); Calcium,Total 8.6 mg/dL (8.5-10.1); Chloride 102 mmol/L (98-107); Creatinine, Serum 0.69 mg/dL (0.55-1.02); EST Glomerular Filtration Rate 91 mL/min (>60); Est Glom Filt Rate - Afr Amer 110 mL/min (>60); Globulin 3.8 g/dL (2.2-4.2); Glucose 74 mg/dL (74-106); Potassium 3.8 mmol/L (3.5-5.1); Protein, Total 7.7 g/dL (6.4-8.2); Sodium Level 137 mmol/L (136-145); Thyroid Stim Hormone (TSH) 2.15 uIU/mL (0.358-3.74)
== END ==
PROVIDERS: PCP Family Medicine Geriatric Medicine; Visit Provider Family Medicine Geriatric Medicine
DX: I10 Essential (primary) hypertension (principal); E55.9 Vitamin D deficiency, unspecified
CPT/HCPCS: 36415; 80053; 82306; 84443; 85025

== ENCOUNTER → 2020-06-06 13:28 | Outpatient (CLI) | payer MEDICARE, SELFPAY ==
[2019-01-07 08:03] VITALS: BMI 17.6
[2020-06-06 16:22] LABS: Absolute Lymphocyte Count 2.58 X10^3/uL (0.83-4.51); Absolute Neutrophil Count 6.7 X10^3/uL (2.0-7.7); Basophil# 0.11 X10^3/uL; Basophil% 1.1 % (0-1); Eosinophil# 0.12 X10^3/uL; Eosinophils% 1.2 % (0-5); Hematocrit 49.6 % (37-47); Hemoglobin 15.5 g/dL (12.0-15.0); Lymphocyte # 2.58 X10^3/ul (4.0); Lymphocyte % 25.6 % (19-41); Mean Corp Hgb Conc 31.3 g/dL (32-36); Mean Corpuscular Hgb 29.7 pg (27.0-32.0); Mean Platelet Vol. 11.2 fl (6.2-12.0); Monocyte# 0.53 X10^3/uL; Monocyte% 5.3 % (0-10); NRBC Flagged by Analyzer 0 % (0-5); Neutrophil # 6.71 X10^3/uL (2.7-7.7); Neutrophil % 66.4 % (47-70); POSITIVE COUNT YES; Platelet Count 177 K/mm3 (150-450); RBC Distribution Width CV 13.3 % (11.6-14.6); Red Blood Count 5.22 M/mm3 (4.2-5.4); White Blood Count 10.1 K/mm3 (4.4-11.0)
[2020-06-06 16:35] LABS: Differential Indicated SCAN CRITERIA MET
[2020-06-06 16:40] LABS: Vitamin D,25 Hydroxy 28.1 ng/mL
[2020-06-06 16:46] LABS: ALB/GLOB Ratio 1.1 RATIO (0.9-2.4); AST(SGOT) 24 U/L (15-37); Alanine Aminotransfer ALT/SGPT 19 U/L (13-56); Albumin, Serum 3.7 g/dL (3.2-5.0); Alkaline Phosphatase 84 U/L (45-117); Anion Gap 9 (5-15); BUN 10 mg/dL (7-18); BUN/Creat Ratio 14.6 RATIO (10-20); Calcium,Total 8.8 mg/dL (8.5-10.1); Chloride 108 mmol/L (98-107); Creatinine, Serum 0.68 mg/dL (0.55-1.02); EST Glomerular Filtration Rate 91 mL/min (>60); Est Glom Filt Rate - Afr Amer 110 mL/min (>60); Globulin 3.3 g/dL (2.2-4.2); Glucose 100 mg/dL (74-106); Potassium 4.6 mmol/L (3.5-5.1); Sodium Level 142 mmol/L (136-145); Thyroid Stim Hormone (TSH) 1.55 uIU/mL (0.358-3.74)
[2020-06-06 16:53] LABS: Differential Comment SCANNED
== END ==
PROVIDERS: PCP Family Medicine Geriatric Medicine; Visit Provider Family Medicine Geriatric Medicine
DX: I10 Essential (primary) hypertension (principal); E55.9 Vitamin D deficiency, unspecified; N39.0 Urinary tract infection, site not specified
CPT/HCPCS: 36415; 80053; 82306; 84443; 85025; 87077; 87086; 87088; 87186

== ENCOUNTER → 2020-12-05 11:00 | Outpatient (CLI) | payer MEDICARE, SELFPAY ==
[2020-12-05 11:23] LABS: Absolute Neutrophil Count 7.5 X10^3/uL (2.0-7.7); Basophil% 0.9 % (0-1); Eosinophils% 0.9 % (0-5); Hematocrit 50.1 % (37-47); Hemoglobin 16.4 g/dL (12.0-15.0); Lymphocyte % 22.1 % (19-41); Mean Corp Hgb Conc 32.7 g/dL (32-36); Mean Corpuscular Hgb 29.7 pg (27.0-32.0); Mean Corpuscular Volume 90.8 fL (81-99); Mean Platelet Vol. 9.3 fl (6.2-12.0); Monocyte# 0.68 X10^3/uL; Monocyte% 6.3 % (0-10); NRBC Flagged by Analyzer 0 % (0-5); Neutrophil # 7.54 X10^3/uL (2.7-7.7); Neutrophil % 69.6 % (47-70); Platelet Count 270 K/mm3 (150-450); RBC Distribution Width CV 14.4 % (11.6-14.6); RBC Distribution Width SD 48.2 fl (35.1-43.9); Red Blood Count 5.52 M/mm3 (4.2-5.4); White Blood Count 10.8 K/mm3 (4.4-11.0)
[2020-12-05 12:02] LABS: Vitamin D,25 Hydroxy 54.4 ng/mL
[2020-12-05 12:06] LABS: ALB/GLOB Ratio 1.2 RATIO (0.9-2.4); AST(SGOT) 21 U/L (15-37); Alanine Aminotransfer ALT/SGPT 24 U/L (13-56); Albumin, Serum 4.2 g/dL (3.2-5.0); Alkaline Phosphatase 87 U/L (45-117); Anion Gap 5 (5-15); BUN 10 mg/dL (7-18); BUN/Creat Ratio 14.5 RATIO (10-20); Chloride 103 mmol/L (98-107); Creatinine, Serum 0.69 mg/dL (0.55-1.02); EST Glomerular Filtration Rate 90 mL/min (>60); Est Glom Filt Rate - Afr Amer 108 mL/min (>60); Globulin 3.5 g/dL (2.2-4.2); Glucose 95 mg/dL (74-106); Potassium 4.9 mmol/L (3.5-5.1); Protein, Total 7.7 g/dL (6.4-8.2); Sodium Level 134 mmol/L (136-145); Thyroid Stim Hormone (TSH) 1.77 uIU/mL (0.358-3.74)
== END ==
PROVIDERS: PCP Family Medicine Geriatric Medicine; Visit Provider Family Medicine Geriatric Medicine
DX: I10 Essential (primary) hypertension (principal); E55.9 Vitamin D deficiency, unspecified
CPT/HCPCS: 36415; 80053; 82306; 84443; 85025

== ENCOUNTER 2021-06-12 09:41 | Outpatient (CLI) | payer MEDICARE, SELFPAY ==
[2021-06-12 12:04] LABS: Absolute Lymphocyte Count 2.04 X10^3/uL (0.83-4.51); Absolute Neutrophil Count 5.3 X10^3/uL (2.0-7.7); Basophil# 0.07 X10^3/uL; Basophil% 0.8 % (0-1); Eosinophil# 0.08 X10^3/uL; Hematocrit 45.8 % (37-47); Hemoglobin 15.1 g/dL (12.0-15.0); Lymphocyte # 2.04 X10^3/ul (0.83-4.51); Lymphocyte % 24.7 % (19-41); Mean Corpuscular Hgb 29.5 pg (27.0-32.0); Mean Corpuscular Volume 89.6 fL (81-99); Mean Platelet Vol. 9.9 fl (6.2-12.0); Monocyte# 0.74 X10^3/uL; Monocyte% 8.9 % (0-10); NRBC Flagged by Analyzer 0 % (0-5); Neutrophil # 5.31 X10^3/uL (2.7-7.7); Neutrophil % 64.2 % (47-70); Platelet Count 260 K/mm3 (150-450); RBC Distribution Width CV 13.2 % (11.6-14.6); RBC Distribution Width SD 43.6 fl (35.1-43.9); Red Blood Count 5.11 M/mm3 (4.2-5.4); White Blood Count 8.3 K/mm3 (4.4-11.0)
[2021-06-12 12:17] LABS: Vitamin D,25 Hydroxy 27.4 ng/mL
[2021-06-12 12:22] LABS: AST(SGOT) 21 U/L (15-37); Alanine Aminotransfer ALT/SGPT 22 U/L (13-56); Albumin, Serum 3.9 g/dL (3.2-5.0); Alkaline Phosphatase 93 U/L (45-117); Anion Gap 8 (5-15); BUN 11 mg/dL (7-18); BUN/Creat Ratio 14.5 RATIO (10-20); Calcium,Total 9.3 mg/dL (8.5-10.1); Chloride 106 mmol/L (98-107); Creatinine, Serum 0.76 mg/dL (0.55-1.02); EST Glomerular Filtration Rate 80 mL/min (>60); Est Glom Filt Rate - Afr Amer 97 mL/min (>60); Globulin 3.9 g/dL (2.2-4.2); Glucose 93 mg/dL (74-106); Potassium 4.3 mmol/L (3.5-5.1); Protein, Total 7.8 g/dL (6.4-8.2); Sodium Level 139 mmol/L (136-145); Thyroid Stim Hormone (TSH) 2.51 uIU/mL (0.358-3.74)
== END 2021-06-12 23:59 | disposition home or self-care (01) ==
LOC: POLAB3 09:44
PROVIDERS: PCP Family Medicine Geriatric Medicine; Visit Provider Family Medicine Geriatric Medicine
DX: E55.9 Vitamin D deficiency, unspecified (principal); I10 Essential (primary) hypertension
CPT/HCPCS: 36415; 80053; 82306; 84443; 85025

== ENCOUNTER → 2022-01-06 | Outpatient (CLI) | payer MEDICARE, SELFPAY ==
[2022-01-06 11:31] LABS: Absolute Lymphocyte Count 2.41 X10^3/uL (0.83-4.51); Absolute Neutrophil Count 6.8 X10^3/uL (2.0-7.7); Basophil# 0.11 X10^3/uL; Basophil% 1.1 % (0-1); Eosinophil# 0.08 X10^3/uL; Eosinophils% 0.8 % (0-5); Hematocrit 45.2 % (37-47); Hemoglobin 15.3 g/dL (12.0-15.0); Lymphocyte # 2.41 X10^3/ul (0.83-4.51); Lymphocyte % 23.7 % (19-41); Mean Corp Hgb Conc 33.8 g/dL (32-36); Mean Corpuscular Hgb 29.9 pg (27.0-32.0); Mean Corpuscular Volume 88.5 fL (81-99); Monocyte# 0.71 X10^3/uL; NRBC Flagged by Analyzer 0 % (0-5); Neutrophil # 6.84 X10^3/uL (2.7-7.7); Neutrophil % 67.1 % (47-70); Platelet Count 283 K/mm3 (150-450); RBC Distribution Width SD 45.1 fl (35.1-43.9); Red Blood Count 5.11 M/mm3 (4.2-5.4); White Blood Count 10.2 K/mm3 (4.4-11.0)
[2022-01-06 12:04] LABS: Vitamin D,25 Hydroxy 38.3 ng/mL
[2022-01-06 12:31] LABS: ALB/GLOB Ratio 1.1 RATIO (0.9-2.4); AST(SGOT) 25 U/L (15-37); Alanine Aminotransfer ALT/SGPT 18 U/L (13-56); Albumin, Serum 3.8 g/dL (3.2-5.0); Alkaline Phosphatase 76 U/L (45-117); Anion Gap 7 (5-15); BUN 14 mg/dL (7-18); BUN/Creat Ratio 19.8 RATIO (10-20); Calcium,Total 9.2 mg/dL (8.5-10.1); Chloride 105 mmol/L (98-107); Creatinine, Serum 0.71 mg/dL (0.55-1.02); EST Glomerular Filtration Rate 87 mL/min (>60); Est Glom Filt Rate - Afr Amer 105 mL/min (>60); Globulin 3.5 g/dL (2.2-4.2); Glucose 92 mg/dL (74-106); Potassium 3.9 mmol/L (3.5-5.1); Protein, Total 7.3 g/dL (6.4-8.2); Sodium Level 137 mmol/L (136-145); Thyroid Stim Hormone (TSH) 2.19 uIU/mL (0.358-3.74)
== END | disposition home or self-care (01) ==
LOC: PAVLAB 11:01 → POLAB3 11:01
PROVIDERS: PCP Family Medicine Geriatric Medicine; Visit Provider Family Medicine Geriatric Medicine
DX: E55.9 Vitamin D deficiency, unspecified (principal); I10 Essential (primary) hypertension
CPT/HCPCS: 36415; 80053; 82306; 84443; 85025

== ENCOUNTER → 2022-06-16 | Outpatient (CLI) | payer MEDICARE, SELFPAY ==
--- NOTE | 2022-06-16 10:05 | RAD_ITS ---
STUDY: X-RAY CHEST REASON FOR EXAM: Female, 71 years old. Chest pain/pressure TECHNIQUE: PA and lateral views of the chest. COMPARISON: None. FINDINGS: Lungs are hyperexpanded with without a superimposed acute pulmonary process. The lungs are clear and expanded. There is no demonstrated pleural abnormality. Normal size heart. Normal mediastinum and brijesh. Normal visualized pulmonary arteries. There is atherosclerotic calcification of the aortic arch with tortuosity. Normal visualized thoracic spine. Normal visualized ribs, clavicles, and shoulders. There is no demonstrated abnormality of the visualized soft tissue structures of the upper abdomen. RAD/Chest PA and Lateral IMPRESSION: Hyperinflated lungs without a superimposed acute pulmonary process Electronically Signed: Boris Gordon MD at 10:21 EDT ,
[2022-06-16 13:22] LABS: Absolute Lymphocyte Count 2.08 X10^3/uL (0.83-4.51); Absolute Neutrophil Count 5.8 X10^3/uL (2.0-7.7); Basophil# 0.08 X10^3/uL; Basophil% 0.9 % (0-1); Eosinophil# 0.14 X10^3/uL; Eosinophils% 1.6 % (0-5); Hematocrit 46.6 % (37-47); Hemoglobin 14.6 g/dL (12.0-15.0); Lymphocyte # 2.08 X10^3/ul (0.83-4.51); Lymphocyte % 24.1 % (19-41); Mean Corp Hgb Conc 31.3 g/dL (32-36); Mean Corpuscular Volume 92.5 fL (81-99); Monocyte# 0.53 X10^3/uL; Monocyte% 6.1 % (0-10); NRBC Flagged by Analyzer 0 % (0-5); Neutrophil # 5.78 X10^3/uL (2.7-7.7); Platelet Count 252 K/mm3 (150-450); RBC Distribution Width SD 47.6 fl (35.1-43.9); Red Blood Count 5.04 M/mm3 (4.2-5.4); White Blood Count 8.6 K/mm3 (4.4-11.0)
[2022-06-16 13:38] LABS: Vitamin D,25 Hydroxy 56.2 ng/mL
[2022-06-16 13:46] LABS: ALB/GLOB Ratio 1.1 RATIO (0.9-2.4); AST(SGOT) 20 U/L (15-37); Alanine Aminotransfer ALT/SGPT 21 U/L (13-56); Albumin, Serum 3.9 g/dL (3.2-5.0); Alkaline Phosphatase 68 U/L (45-117); Anion Gap 8 (5-15); BUN 22 mg/dL (7-18); BUN/Creat Ratio 31.2 RATIO (10-20); Calcium,Total 9.1 mg/dL (8.5-10.1); Chloride 107 mmol/L (98-107); EST Glomerular Filtration Rate 87 mL/min (>60); Est Glom Filt Rate - Afr Amer 106 mL/min (>60); Globulin 3.5 g/dL (2.2-4.2); Glucose 87 mg/dL (74-106); Potassium 4.3 mmol/L (3.5-5.1); Protein, Total 7.4 g/dL (6.4-8.2); Sodium Level 140 mmol/L (136-145); Thyroid Stim Hormone (TSH) 3.56 uIU/mL (0.358-3.74)
== END | disposition home or self-care (01) ==
PROVIDERS: PCP Family Medicine Geriatric Medicine; Visit Provider Family Medicine Geriatric Medicine
DX: E55.9 Vitamin D deficiency, unspecified (principal); J44.9 Chronic obstructive pulmonary disease, unspecified; R53.83 Other fatigue; R07.9 Chest pain, unspecified
CPT/HCPCS: 36415; 71046; 80053; 82306; 84443; 85025; 87635; 87804; 87807; C9803; U0003; U0005

== ENCOUNTER → 2022-06-23 | Outpatient (CLI) | payer MEDICARE, SELFPAY ==
--- NOTE | 2022-06-23 09:50 | BI_ITS ---
MAMMOGRAPHY - BILATERAL SCREENING REASON FOR EXAM: Female, 71 years old. Routine annual screening examination. PERTINENT HISTORY: Daughter with breast cancer. TECHNIQUE: Digital bilateral breast ddee (3D mammographic acquisition) in the CC and MLO projections. 2-D mediolateral oblique (MLO) and craniocaudad (CC) views of both breasts were obtained. CAD: Full Field Digital Mammography with Computer Added Detection was performed. COMPARISON: No comparison mammograms available at this time. If any prior films become available, an addendum to this report can be generated. FINDINGS: Breast Composition: The breasts are extremely dense, which lowers the sensitivity of mammography. There are no dominant masses or suspicious calcifications. No other significant abnormalities are identified. BI/SCRN MAMM (CAD)W/DEDE BILAT IMPRESSION: Negative screening mammogram. Yearly followup mammogram recommended. (A) ASSESSMENT CATEGORY: BIRADS Category 1: Negative. A letter regarding these results will be sent to the patient by the facility within 30 days. Approximately 10% of breast cancers are not detected by mammography. A normal mammogram should not delay biopsy of a clinically suspicious abnormality. [id number] Electronically Signed: Artemio Barnes MD at 10:30 EDT ,
== END | disposition home or self-care (01) ==
LOC: OPBI 09:48
PROVIDERS: PCP Family Medicine Geriatric Medicine; Referring Provider Family Medicine Geriatric Medicine; Visit Provider Family Medicine Geriatric Medicine
DX: Z12.31 Encounter for screening mammogram for malignant neoplasm of breast (principal)
CPT/HCPCS: 77063; 77067

== ENCOUNTER 2022-09-28 13:11 | Emergency (ER) | payer MEDICARE, SELFPAY ==
[2022-09-28 13:11] VITALS: BP 146/96; PULSE 96; RESP 15; TEMP 36.8; O2SAT 98; BMI 19.2
--- NOTE | 2022-09-28 13:22 | RAD_ITS ---
STUDY: X-RAY - RIGHT FOOT CLINICAL: Female, 71 years old. Lateral pain after trauma TECHNIQUE: 3 view(s) of the foot. COMPARISON: None. FINDINGS: Normal talus and tarsal bones. Small calcaneal spurs. Normal visualized subtalar, talonavicular, calcaneocuboid, tarsal and tarsometatarsal articulations. Normal metatarsi. Normal metatarsophalangeal joint of the great toe. Normal tibial and fibular sesamoid bones. Normal interphalangeal joint of the great toe. Normal phalanges of the great toe. Normal second through fifth metatarsophalangeal joints. Normal interphalangeal joints and phalanges of the lesser toes. The soft tissue structures are unremarkable. RAD/Foot min 3 Views IMPRESSION: Small calcaneal spurs, no fracture or suspicious osseous lesion Electronically Signed: Boris Gordon MD at 14:03 EDT ,
--- NOTE | 2022-09-28 13:22 | ED.VIS.LOWEX ---
HPI History of Present Illness Chief Complaint: Lower Extremity Injury Informant: patient Narrative Narrative: Earlier today, patient states she was reaching up to grab something out of a cabinet and she somehow twisted her right foot or ankle and injured her right foot. She is able to walk on it but it is painful to do so. She denies any other injury. [facility] Medical History (Updated 09/28/22 @ 15:[address] Silverio Posada MD) Anxiety Depression GI bleed Hypercholesterolemia Home Medications atorvastatin 80 mg tablet 80 mg PO QHS 07/09/16 [History Last Taken Unknown] ergocalciferol (vitamin D2) 1,250 mcg (50,000 unit) capsule (Vitamin D2) 50,000 unit PO TU 06/18/17 [History Last Taken Unknown] alprazolam 1 mg tablet 1 mg PO BID 01/07/19 [History Last Taken Unknown] aspirin 81 mg chewable tablet 81 mg PO DAILY@0800 01/07/19 [History Last Taken 01/06/19] metoprolol tartrate 50 mg tablet 50 mg PO BID 01/07/19 [History Last Taken Unknown] Allergy/AdvReac Type Severity Reaction Status Date / Time morphine Allergy Itching Verified 09/28/22 13:13 Family History (Updated 06/05/17 @ 13:07 by Mayra Chaudhary) Mother Diabetes Hypertension Kidney disease Daughter Breast cancer Father CVA (cerebral vascular accident) Surgical History H/O: hysterectomy History of laparoscopic cholecystectomy Social History Smoking Status: Current every day smoker tobacco type: cigarettes alcohol intake: never ROS ROS ED Constitutional Constitutional ED: Denies chills or fever(s) Musculoskeletal Musculoskeletal: Reports extremity pain; Denies neck pain Integumentary Denies Abrasions, rash or wounds Neurologic Neurologic: Denies paresthesias or weakness EXAM Physical Exam Const Vital Signs: 09/28/22 13:11 Temperature 98.2 F Temperature Source Temporal Pulse Rate 96 Respiratory Rate 15 Blood Pressure 146/96 H Blood Pressure Mean 112 Pulse Ox 98 Oxygen Delivery Method Room Air Positive well nourished and well developed General Appearance ED: well developed and NAD Neck full ROM and supple Back/Spine normal ROM and normal to inspection Extremity Extremity Narrative: Tenderness and swelling lateral aspect of the right foot in between the lateral malleolus and the base of the fifth metatarsal, the base of the fifth is barely tender, the dorsum of the midfoot is nontender, and the ankle bones are nontender. Limited range of motion of the ankle due to pain in the foot. No forefoot tenderness. No other areas of limitations or tenderness. Neuro oriented x3, no focal motor deficits and no sensory deficits noted Sensorium / Orientation: alert Psych mental status grossly normal and thought process normal Skin no wounds Rashes: no rashes MDM MDM MDM Narrative Medical decision making narrative: Three-view x-ray series of the right foot negative on my interpretation. I think this is an ATFL sprain, we are giving her an Aircast, close a patient follow-up as advised. Radiography Diagnostic Testing: Clinical Impression(s) from Imaging Studies Foot X-Ray 09/28/22 13:22 IMPRESSION: Small calcaneal spurs, no fracture or suspicious osseous lesion Electronically Signed: Boris Gordon MD at 14:03 EDT Reading Location ID and State: [facility] / [place] , Service support , Discharge Plan Triage Chief Complaint: Lower Extremity Injury ED Provider: Silverio Posada Dx/Rx/DC Orders Clinical Impression: Right ankle sprain Instructions: ED Ankle Sprain (Adult) Prescriptions: No Action atorvastatin 80 MG tablet 80 mg PO QHS ergocalciferol (vitamin D2) [Vitamin D2] 50,000 UNIT capsule 50,000 unit PO TU alprazolam 1 MG tablet 1 mg PO BID metoprolol tartrate 50 MG tablet 50 mg PO BID aspirin 81 MG tablet,chewable 81 mg PO DAILY@0800 Primary Care Provider: Michael Oliveira Chi Referrals: Chris Henning DPM [Med Staff - Active Staff] - 10-14 Days if not better Michael Oliveira Chi, MD [Primary Care Provider] - Disposition Disposition: Home, Self Care
[2022-09-28] MEDS: Naproxen 250 MG Tablet 500 MG PO (15:31)
== END 2022-09-28 15:41 | disposition home or self-care (01) ==
PROVIDERS: Emergency Provider Emergency Medicine; PCP Family Medicine Geriatric Medicine; Visit Provider Emergency Medicine
DX: S93.401A Sprain of unspecified ligament of right ankle, initial encounter (principal); E78.00 Pure hypercholesterolemia, unspecified; F17.210 Nicotine dependence, cigarettes, uncomplicated; X50.1XXA Overexertion from prolonged static or awkward postures, initial encounter
CPT/HCPCS: 73630; 99283

== ENCOUNTER → 2022-12-15 | Outpatient (CLI) | payer MEDICARE, SELFPAY ==
[2022-12-15 10:44] LABS: Absolute Lymphocyte Count 2.33 X10^3/uL (0.83-4.51); Absolute Neutrophil Count 8.4 X10^3/uL (2.0-7.7); Basophil# 0.07 X10^3/uL; Basophil% 0.6 % (0-1); Eosinophil# 0.13 X10^3/uL; Eosinophils% 1.1 % (0-5); Hematocrit 47.6 % (37-47); Hemoglobin 15.4 g/dL (12.0-15.0); Lymphocyte # 2.33 X10^3/ul (0.83-4.51); Mean Corp Hgb Conc 32.4 g/dL (32-36); Mean Corpuscular Hgb 29.6 pg (27.0-32.0); Mean Corpuscular Volume 91.5 fL (81-99); NRBC Flagged by Analyzer 0 % (0-5); Neutrophil # 8.37 X10^3/uL (2.7-7.7); Platelet Count 270 K/mm3 (150-450); RBC Distribution Width CV 13.7 % (11.6-14.6); RBC Distribution Width SD 46.5 fl (35.1-43.9); White Blood Count 11.6 K/mm3 (4.4-11.0)
[2022-12-15 11:05] LABS: Vitamin D,25 Hydroxy 77.5 ng/mL
[2022-12-15 11:19] LABS: ALB/GLOB Ratio 1.1 RATIO (0.9-2.4); AST(SGOT) 20 U/L (15-37); Alanine Aminotransfer ALT/SGPT 23 U/L (13-56); Albumin, Serum 3.9 g/dL (3.2-5.0); Alkaline Phosphatase 76 U/L (45-117); Anion Gap 7 (5-15); BUN 15 mg/dL (7-18); BUN/Creat Ratio 20.1 RATIO (10-20); Calcium,Total 9.2 mg/dL (8.5-10.1); Chloride 104 mmol/L (98-107); Creatinine, Serum 0.74 mg/dL (0.55-1.02); EST Glomerular Filtration Rate 82 mL/min (>60); Est Glom Filt Rate - Afr Amer 99 mL/min (>60); Globulin 3.6 g/dL (2.2-4.2); Glucose 118 mg/dL (74-106); Potassium 3.9 mmol/L (3.5-5.1); Protein, Total 7.5 g/dL (6.4-8.2); Sodium Level 136 mmol/L (136-145); Thyroid Stim Hormone (TSH) 2.38 uIU/mL (0.358-3.74)
== END | disposition home or self-care (01) ==
LOC: POLAB3 09:00
PROVIDERS: PCP Family Medicine Geriatric Medicine; Visit Provider Family Medicine Geriatric Medicine
DX: R53.83 Other fatigue (principal); E55.9 Vitamin D deficiency, unspecified
CPT/HCPCS: 36415; 80053; 82306; 84443; 85025

== ENCOUNTER → 2023-06-22 | Outpatient (CLI) | payer MEDICARE, SELFPAY ==
--- OUTSIDE RECORDS SUMMARY | 2023-06-22 09:33 | XMS RPT_ITS | CCD ---
Author Name Unknown Address [email or web address] [place] [address] Organization [facility] Care Team Providers Care Craft Worker Name Role Phone Dvaid Rodrigues Unavailable Unavailable David Rodrigues Unavailable Unavailable Keely, Dolores Chi Unavailable Unavailable Keely, Dolores Chi Primary Care Provider [phone] Keely, Dolores Chi Primary Care Provider KEELY, DOLORES CHI Primary Care Unavailable TRES BACON Referring Unavailable KEELY, DOLORES CHI Primary Care Unavailable KEELY, DOLORES CHI Primary Care Unavailable KEELY, DOLORES CHI Primary Care Unavailable KEELY, DOLORES CHI Primary Care Unavailable Allergies Allergy Classification Reported Allergen(s) Allergy Type Date of Onset Reaction(s) Facility (3 sources) Morphine; Translations: [MORPHINE] Drug Allergy 12-20-2004 Itching [facility] Medications Current Medications Medication Drug Class(es) Dates Sig (Normalized) Sig (Original) doxycycline monohydrate 100 mg oral capsule (1 source) Tetracycline-cla ss Drug Start: 09-09-2021 End: 09-16-2021 take 1 capsule by mouth twice daily doxycycline monohydrate (MONODOX) 100 mg capsule Indications: COPD with exacerbation (HCC) Take 1 capsule by mouth twice daily for 7 days. 14 capsule 0 09/09/2021 09/16/2021 Active Completed/Discontinued Medications Medication Drug Class(es) Dates Sig (Normalized) Sig (Original) acetaminophen 325 mg oral tablet (2 sources) Start: 08-30-2014 take 325-650 mg by mouth every four hours as needed acetaminophen (TYLENOL) 325 mg tablet Take 1-2 tablets by mouth every 4 hours as needed. 0 08/30/2014 Active Problems Active Problems Problem Classification Problem Date Documented Da te Episodic/Chronic Anxiety disorders (2 sources) Anxiety state; Translations: [Generalized anxiety disorder] Onset: 07-28-2007 04-01-2021 Chronic Chronic obstructive pulmonary disease and bronchiectasis (5 sources) Acute exacerbation of chronic obstructive airways disease; Translations: [Chronic obstructive pulmonary disease with (acute) exacerbation] Onset: 11-02-2018 Chronic Diseases of white blood cells (2 sources) Leukocytosis; Translations: [Elevated white blood cell count, unspecified] Onset: 10-30-2018 11-01-2018 Chronic Disorders of lipid metabolism (2 sources) Mixed hyperlipidemia; Translations: [Mixed hyperlipidemia] Onset: 03-02-2015 11-01-2018 Chronic Essential hypertension (2 sources) Benign essential hypertension; Translations: [Essential (primary) hypertension] Onset: 2018 11-01-2018 Chronic Gastroduodenal ulcer (except hemorrhage) (2 sources) Chronic gastric ulcer; Translations: [Chronic gastric ulcer without hemorrhage or perforation] Onset: 2018 10-26-2018 Chronic Mood disorders (4 sources) Depressive disorder; Translations: [Other specified depressive episodes] Onset: 09-02-2014 01-31-2013 Chronic Nutritional deficiencies (2 sources) Undernutrition; Translations: [Mild protein-calorie malnutrition] Onset: 11-01-2018 11-01-2018 Chronic Osteoporosis (2 sources) Osteoporosis; Translations: [Age-related osteoporosis without current pathological fracture] Onset: 08-26-2010 01-31-2013 Chronic Peripheral and visceral atherosclerosis (2 sources) Chronic vascular insufficiency of intestine; Translations: [Chronic vascular disorders of intestine] Onset: 08-30-2014 11-01-2018 Chronic Substance-related disorders (2 sources) Tobacco user; Translations: [Nicotine dependence, unspecified, uncomplicated] 11-01-2018 Chronic Past or Other Problems Problem Classification Problem Date Documented Date Episodic/Chronic Abdominal pain (2 sources) Epigastric pain; Translations: [Epigastric pain] Onset: 2018 10-26-2018 Episodic Acute posthemorrhagic anemia (2 sources) Acute posthemorrhagic anemia; Translations: [Acute posthemorrhagic anemia] Onset: 09-01-2014 04-01-2021 Episodic Biliary tract disease (2 sources) Chronic cholecystitis; Translations: [Chronic cholecystitis] Onset: 06-02-2014 06-02-2014 Episodic Complications of surgical procedures or medical care (2 sources) Pulmonary insufficiency following surgery; Translations: [Other postprocedural complications and disorders of respiratory system, not elsewhere classified] Onset: 10-26-2018 11-01-2018 Episodic Other and unspecified benign neoplasm (2 sources) Polyp of colon; Translations: [Polyp of colon] Onset: 03-18-2016 03-18-2016 Episodic Other injuries and conditions due to external causes (2 sources) Otitic barotrauma; Translations: [Otitic barotrauma, initial encounter] Onset: 03-02-2015 03-02-2015 Episodic Other nervous system disorders (2 sources) Postoperative pain ; Translations: [Other acute postprocedural pain] Onset: 2018 11-01-2018 Episodic Other skin disorders (2 sources) Vesicular eczema; Translations: [Dyshidrosis [pompholyx]] Onset: 05-10-2009 05-10-2009 Episodic Other upper respiratory infections (3 sources) Acute upper respiratory infection; Translations: [Acute upper respiratory infection, unspecified] Onset: 09-09-2021 Episodic Peripheral and visceral atherosclerosis (2 sources) Acute vascular insufficiency of intestine; Translations: [Acute (reversible) ischemia of intestine, part and extent unspecified] Onset: 2018 10-30-2018 Episodic Urinary tract infections (2 sources) Acute cystitis; Translations: [Acute cystitis without hematuria] Onset: 11-02-2018 11-02-2018 Episodic Results Test Name Value Interpretation Reference Range Facil ity Vital Signs Date Time Vital Sign Value Performing Clinician Angela che 03-27-2022 11:03-0500 Body temperature 98.6 [degF] Camila Armenta APRN.CNP Work Phone: [facility] 03-27-2022 11:03-0500 Body weight 49.53 kg Camila Armenta APRN.CNP Work Phone: [facility] 03-27-2022 11:03-0500 Diastolic blood pressure 82 mm[Hg] Camila Armenta APRN.CNP Work Phone: [facility] 03-27-2022 11:03-0500 Heart rate 98 /min Camila Armenta APRN.CNP Work Phone: [facility] 03-27-2022 11:03-0500 Respiratory rate 20 /min Camila Armenta APRN.CERAMIC DESIGNER Work Phone: [facility] 03-27-2022 11:03-0500 SaO2% (BldA) [Mass fraction] 94 % Camila Armenta APRN.CERAMIC DESIGNER Work Phone: [facility] 03-27-2022 11:03-0500 Systolic blood pressure 126 mm[Hg] Camila Armenta APRN.CERAMIC DESIGNER Work Phone: [facility] 09-09-2021 13:24-0400 Body temperature 98.29 [degF] Tres Bacon MD Work Phone: [facility] 09-09-2021 13:24-0400 Body weight 50.71 kg Tres Bacon MD Work Phone: [facility] 09-09-2021 13:24-0400 Diastolic blood pressure 78 mm[Hg] Tres Bacon MD Work Phone: [facility] 09-09-2021 13:24-0400 Heart rate 100 /min Tres Bacon MD Work Phone: [facility] 09-09-2021 13:24-0400 Respiratory rate 20 /min Tres Bacon MD Work Phone: [facility] 09-09-2021 13:24-0400 SaO2% (BldA) [Mass fraction] 91 % Tres Bacon MD Work Phone: [facility] 09-09-2021 13:24-0400 Systolic blood pressure 122 mm[Hg] Tres Bacon MD Work Phone: [facility] Encounters Encounter Date Encounter Type Care Provider Facility Start: 08-14-2022 End: 08-14-2022 ambulatory [facility] Facility:[facility] Start: 03-27-2022 End: 03-27-2022 ambulatory [facility] Facility:[facility] Start: 03-27-2022 End: 03-27-2022 Patient encounter procedure Camila Armenta APRN.CERAMIC DESIGNER Work Phone: [facility] Procedures Date Procedure Procedure Detail Performing Clinician Start: 03-03-2016 Mammography Tres campbell MD Work Phone: Start: 09-02-2014 Colonoscopy Tres campbell MD Work Phone: Plan of Treatment Date Care Activity Detail Author Start: 09-02-2024 Colonoscopy COLONOSCOPY [facility] Start: 09-02-2024 COLORECTAL CANCER SCREENING COLORECTAL CANCER SCREENING [facility] Start: 10-27-2023 LIPID SCREEN LIPID SCREEN [facility] Start: 09-09-2022 BP CONTROLLED (<130/80) BP CONTROLLED (<130/80) [facility] Start: 12-05-2021 Influenza vaccination INFLUENZA (#1) [facility] Start: 11-01-2021 DIABETES SCREEN DIABETES SCREEN [facility] Start: 09-09-2021 End: 09-23-2021 SARS-CoV-2 (COVID-19) RNA [Presence] in Respiratory specimen by ALVARO with probe detection 2019 CORONAVIRUS Microbiology Routine COPD with exacerbation (HCC) URI, acute Expected: 09/09/2021, Expires: 09/23/2021 [facility] Work Phone: Immunizations Immunization Date Immunization Notes Care Provider [facility] 03-03-2016 influenza, injectabl e, quadrivalent, contains preservative Tres Bacon MD Work Phone: [facility] 03-02-2015 influenza, injectabl e, quadrivalent, contains preservative Tres Bacon MD Work Phone: [facility] 02-06-2014 influenza, seasonal, injectable Tres Bacon MD Work Phone: [facility] 01-31-2013 influenza virus vacc ine, unspecified formulation Tres Bacon MD Work Phone: [facility] 01-15-2012 influenza virus vacc ine, unspecified formulation Tres Bacon MD Work Phone: [facility] 01-10-2011 influenza virus vacc ine, unspecified formulation Tres Bacon MD Work Phone: [facility] 01-10-2011 pneumococcal polysaccharide vaccine, 23 valent Tres Bacon MD Work Phone: [facility] 01-15-2010 influenza virus vacc ine, unspecified formulation Tres Bacon MD Work Phone: [facility] 05-02-2008 tetanus toxoid, redu maria c diphtheria toxoid, and acellular pertussis vaccine, adsorbed Tres Bacon MD Work Phone: [facility] Work Phone: Payers Date Payer Category Payer Medicare [employer] [place] [id number] 2021-Present [phone] [address] [place] [address] O [id number] 2021 Medicare [id number] 2018 Unknown ANTHEM BLUE CROS S AND BLUE SHIELD ANTHEM MEDIBLUE O [id number] 2018-Present [phone] [address] [place] [address] O [id number] 2018 Unknown [id number] 2017 Unknown Social History Date Type Detail Facility Start: 12-13-2018 End: 03-27-2022 Tobacco smoking status NHIS Ex-smoker [facility] Start: 04-06-1987 End: 10-29-2018 History of tobacco use Current smoker [facility] Start: 04-06-1987 End: 10-29-2018 History of tobacco use Cigarette Smoker [facility] Start: 12-13-2018 End: 03-27-2022 Cigarettes smoked current (pack per day) - Reported 1 [facility] Start: 12-13-2018 End: 03-27-2022 Tobacco use and exposure Smokeless tobacco non-user [facility] Start: 09-09-2021 End: 03-27-2022 Alcohol intake Current non-drinker of alcohol (finding) [facility] Start: 01-10-2019 End: 03-27-2022 Tobacco Comment NO VAPING HISTORY [facility] Start: 1950 Sex Assigned At Not on file [facility] Start: 08-30-2021 End: 09-09-2021 Exposure to SARS-CoV-2 (event) Not sure [facility] Medical Equipment Procedure Code Equipment Code Equipment Original Text Equipment Identifier Dates Graft Hemashield Gold 14mm 7mm 2 Branch Thin 2 Velour Microvel 40cm - [id number] Start: 2018 [place] Thk1.65mm P tfe 4x.5in Cardiovascular Sterile - [id number] Start: 2018 Stent Kartik 6mm 30 cm 120cm [facility] - [id number] Start: 08-29-2014 Clinical Notes 10-28-2018 to 08-14-[address]a APRN.CERAMIC DESIGNER - 03/27/2022 11:09 AM Erin Bacon MD - 09/09/2021 1:26 PM EDT Note Date & Type Note Facility 08-14-2022 Note HNO ID: [id number] Author: JAROCHO Best Service: ? Author Type: Physician Cheese Cooker Type: Progress Notes Filed: 08/14/2022 10:42 AM Note Text: This note was created using [employer]. Subjective Jessica Pierre is a 71 year old female. HPI 71-year-old female presents for UTI symptoms. Patient states she has been having some dysuria, suprapubic pressure, frequency and malodorous urine for the past 3 to 4 days. She states it started after going on a cruise. She denies any back pain. No abdominal pain. No vomiting. No fevers. She has had UTIs in the past. She has not noticed any blood in her urine. No history of renal insufficiency. She is also complaining of bilateral ear pressure after flying on the plane and wants her ears checked. She is not really have pain in the ears, but just pressure. PAST MEDICAL HISTORY Diagnosis Date Acute diastolic heart failure (HCC) 10/26/2018 Acute pulmonary edema (HCC) 10/26/2018 Adrenal mass (HCC) B/L Anxiety state Benign essential HTN 2018 Bilateral renal cysts Chronic gastric ulcer 2018 Current smoker Depressive disorder, not elsewhere classified Diverticulosis of colon (without mention of hemorrhage) Endometriosis, site unspecified Endometriosis Epigastric abdominal pain Fatigue Hepatic lesion Hyperlipidemia Multiple gastric ulcers had 5 - now only one Nervous breakdown Osteoporosis Panlobular emphysema (HCC) Seborrheic keratosis PAST SURGICAL HISTORY Procedure Laterality Date COLONOSCOPY 09/02/2014 COLONOSCOPY FLX DX W/COLLJ SPEC WHEN PFRMD 01/24/2008 Colonoscopy ESOPHAGOGASTRODUODENOSCOPY TRANSORAL DIAGNOSTIC 05/11/2014 EGD ESOPHAGOGASTRODUODENOSCOPY TRANSORAL DIAGNOSTIC 08/10/14 EGD LAPAROSCOPY SURG CHOLECYSTECTOMY 05/25/2014 PAST SURGICAL HISTORY OF bowel surgery after hyster, bowel obstruction PAST SURGICAL HISTORY OF plate right wrist PAST SURGICAL HISTORY OF 10/1997 Right wrist fusion, right carpal tunnel, right Grapow's PAST SURGICAL HISTORY OF 08/2014 arterial stents placed in the celiac trunk and SMA TOTAL ABDOMINAL HYSTERECT W/WO RMVL TUBE OVARY Exploratory laparotomy, total abdominal hysterectomy with bilateral salpingo-oophorectomy and lysis of adhesions with left ureteral lysis ALLERGIES Morphine MEDICATIONS guaiFENesin (MUCINEX) 600 mg 12 hr tablet Take 2 tablets by mouth twice daily. albuterol HFA (PROAIR HFA) 90 mcg/actuation inhaler Inhale 2 Puffs as instructed every 4 hours as needed. citalopram (CELEXA) 20 mg tablet Take by mouth once daily. levothyroxine 25 mcg cap Take 25 mcg by mouth daily before breakfast. icosapent ethyl (VASCEPA) 1 gram capsule Take 2 g by mouth twice daily with meals. ALPRAZolam (XANAX) 1 mg tablet Take 1 mg by mouth twice daily. atorvastatin (LIPITOR) 80 mg tablet Take 1 tablet by mouth once daily. tiotropium (SPIRIVA RESPIMAT) 2.5 mcg/actuation inhaler Inhale 2 Puffs as instructed once daily. acetaminophen (TYLENOL) 325 mg tablet Take 1-2 tablets by mouth every 4 hours as needed. cephALEXin (KEFLEX) 500 mg capsule Take 1 capsule by mouth twice daily for 7 days. metoprolol tartrate, short acting, (LOPRESSOR) 50 mg tablet Take 50 mg by mouth twice daily. (Patient not taking: Reported on 08/14/2022) FAMILY HISTORY Problem Relation Age of Onset Hypertension Mother Kidney Disease Hypertension Father Stroke; Depression/Anxiety Hypertension Brother Hypertension Sister Hypertension Sister Stroke Maternal Grandfather age 50's Stroke Paternal Grandfather other (Leukemia) Paternal Grandmother other (Liver Cancer) Daughter S/P OLT Social History Tobacco Use Smoking status: Every Day Packs/day: 1.00 Years: 30.00 Pack years: 30.00 Types: Cigarettes Start date: 04/06/1987 Last attempt to quit: 10/29/2018 Years since quittin.7 Smokeless tobacco: Never Tobacco comments: NO VAPING HISTORY Substance Use Topics Alcohol use: No Drug use: No Review of Systems Constitutional: Negative for chills and fever. HENT: Negative for congestion, ear pain (+pressure) and sore throat. Respiratory: Negative for cough and shortness of breath. Cardiovascular: Negative for chest pain. Gastrointestinal: Negative for abdominal pain, diarrhea and vomiting. Genitourinary: Positive for dysuria, frequency and urgency. Negative for hematuria and pelvic pain. Objective BP 130/74 Pulse 91 Temp 36.6 ?C (97.8 ?F) (Tympanic) Resp 18 Wt 49.9 kg (110 lb) SpO2 96% BMI 19.49 kg/m? Physical Exam Vitals and nursing note reviewed. Constitutional: General: She is not in acute distress. Appearance: Normal appearance. She is not toxic-appearing. HENT: Right Ear: Tympanic membrane and ear canal normal. Left Ear: Tympanic membrane and ear canal normal. Ears: Comments: Small amount of clear fluid behind both TMs bilaterally. No evidence of TM perforation. No signs of infection. Nose: Nose (more content not included)... [facility] 03-27-2022 Note HNO ID: [id number] Author: Camila Armenta APRN.CERAMIC DESIGNER Service: ? Author Type: Nurse Practitioner Type: Progress Notes Filed: 03/27/2022 11:33 AM Note Text: Subjective The history is provided by the patient. No foreign languages professor was used. HPI Jessica Pierre is a 71 year old female who presents today for CC of cough, chest congestion, body aches for 6 days. She has used no medications, states she is out of inhaler H/o COPD/smoker Exposure - none known BP 126/82 Pulse 98 Temp 37 ?C (98.6 ?F) Resp 20 Wt 49.5 kg (109 lb 3.2 oz) SpO2 94% BMI 19.34 kg/m? Social History Tobacco Use Smoking status: Former Packs/day: 1.00 Years: 30.00 Pack years: 30.00 Types: Cigarettes Start date: 04/06/1987 Quit date: 10/29/2018 Years since quittin.4 Smokeless tobacco: Never Tobacco comments: NO VAPING HISTORY Substance Use Topics Alcohol use: No Drug use: No PAST MEDICAL HISTORY Diagnosis Date Acute diastolic heart failure (HCC) 10/26/2018 Acute pulmonary edema (HCC) 10/26/2018 Adrenal mass (HCC) B/L Anxiety state Benign essential HTN 2018 Bilateral renal cysts Chronic gastric ulcer 2018 Current smoker Depressive disorder, not elsewhere classified Diverticulosis of colon (without mention of hemorrhage) Endometriosis, site unspecified Endometriosis Epigastric abdominal pain Fatigue Hepatic lesion Hyperlipidemia Multiple gastric ulcers had 5 - now only one Nervous breakdown Osteoporosis Panlobular emphysema (HCC) Seborrheic keratosis I have confirmed and edited as necessary, the [facility] Review of Systems Constitutional: Negative for chills and fever. HENT: Negative for congestion, ear pain, sinus pain and sore throat. Respiratory: Positive for cough. Negative for sputum production, shortness of breath and wheezing. Cardiovascular: Negative for chest pain. Musculoskeletal: Negative for myalgias. Neurological: Negative for headaches. Objective Physical Exam Vitals and nursing note reviewed. HENT: Head: Normocephalic and atraumatic. Right Ear: Tympanic membrane, ear canal and external ear normal. Left Ear: Tympanic membrane, ear canal and external ear normal. Nose: No mucosal edema, congestion or rhinorrhea. Right Sinus: No maxillary sinus tenderness or frontal sinus tenderness. Left Sinus: No maxillary sinus tenderness or frontal sinus tenderness. Mouth/Throat: Pharynx: Uvula midline. No oropharyngeal exudate or posterior oropharyngeal erythema. Cardiovascular: Rate and Rhythm: Normal rate and regular rhythm. Heart sounds: Normal heart sounds. Pulmonary: Effort: Pulmonary effort is normal. Breath sounds: Decreased air movement present. Wheezing present. Lymphadenopathy: Head: Right side of head: No submental, submandibular or tonsillar adenopathy. Left side of head: No submental, submandibular or tonsillar adenopathy. Cervical: No cervical adenopathy. Skin: General: Skin is warm and dry. Neurological: Mental Status: She is alert. Psychiatric: Mood and Affect: Affect normal. ASSESSMENT/PLAN: 1. COPD with exacerbation (HCC) - ICD9: 491.21, ICD10: J44.1 (primary diagnosis) Prednisone burst, albuterol every 4-6 hours Tessalon perls 2. URI with cough and congestion - ICD9: 465.9, ICD10: J06.9 - Discussed viral etiology and rationale for treatment. - Symptomatic treatment with prn analgesia - Supportive care with fluids and rest - Declines testing Diagnosis and treatment plan were discussed and questions were answered to the patient's satisfaction. Pt acknowledged understanding of concepts and follow up plan. Specific signs and symptoms that would indicate the need for higher level of care were discussed in detail warranting prompt ER evaluation. Camila Armenta APRN.CNP [facility] 03-27-2022 Instructions Camila Armenta APRN.CNP - 03/27/2022 11:27 AM EST Albuterol inhaler 2 puffs every 4-6 hours as needed for cough * Prednisone 40 mg (2 tablets) per day for 5 days, take in morning or early in day * Do not NSAIDs during this 5 day course (ibuprofen, naproxen, Motrin, Aleve, Advil) Tylenol only during prednisone use * Follow up with primary care provider if no improvement with treatment * Seek medical care immediately, call 911, go to ER if you have chest pain, difficulty breathing, shortness of breath, inability to swallow. Tessalon Perles 2 every 8 hours, do not combine this with robitussin or delsym documented in this encounter [facility] 03-27-2022 History of Present illness Narrative Subjective The history is provided by the patient. No foreign languages professor was used. HPI Jessica Pierre is a 71 year old female who presents today for CC of cough, chest congestion, body aches for 6 days. She has used no medications, states she is out of inhaler H/o COPD/smoker Exposure - none known BP 126/82 Pulse 98 Temp 37 C (98.6 F) Resp 20 Wt 49.5 kg (109 lb 3.2 oz) SpO2 94% BMI 19.34 kg/m Social History Tobacco Use Smoking status: Former Packs/day: 1.00 Years: 30.00 Pack years: 30.00 Types: Cigarettes Start date: 04/06/1987 Quit date: 10/29/2018 Years since quittin.4 Smokeless tobacco: Never Tobacco comments: NO VAPING HISTORY Substance Use Topics Alcohol use: No Drug use: No PAST MEDICAL HISTORY Diagnosis Date Acute diastolic heart failure (HCC) 10/26/2018 Acute pulmonary edema (HCC) 10/26/2018 Adrenal mass (HCC) B/L Anxiety state Benign essential HTN 2018 Bilateral renal cysts Chronic gastric ulcer 2018 Current smoker Depressive disorder, not elsewhere classified Diverticulosis of colon (without mention of hemorrhage) Endometriosis, site unspecified Endometriosis Epigastric abdominal pain Fatigue Hepatic lesion Hyperlipidemia Multiple gastric ulcers had 5 - now only one Nervous breakdown Osteoporosis Panlobular emphysema (HCC) Seborrheic keratosis I have confirmed and edited as necessary, the [facility] Review of Systems Constitutional: Negative for chills and fever. HENT: Negative for congestion, ear pain, sinus pain and sore throat. Respiratory: Positive for cough. Negative for sputum production, shortness of breath and wheezing. Cardiovascular: Negative for chest pain. Musculoskeletal: Negative for myalgias. Neurological: Negative for headaches. Objective Physical Exam Vitals and nursing note reviewed. HENT: Head: Normocephalic and atraumatic. Right Ear: Tympanic membrane, ear canal and external ear normal. Left Ear: Tympanic membrane, ear canal and external ear normal. Nose: No mucosal edema, congestion or rhinorrhea. Right Sinus: No maxillary sinus tenderness or frontal sinus tenderness. Left Sinus: No maxillary sinus tenderness or frontal sinus tenderness. Mouth/Throat: Pharynx: Uvula midline. No oropharyngeal exudate or posterior oropharyngeal erythema. Cardiovascular: Rate and Rhythm: Normal rate and regular rhythm. Heart sounds: Normal heart sounds. Pulmonary: Effort: Pulmonary effort is normal. Breath sounds: Decreased air movement present. Wheezing present. Lymphadenopathy: Head: Right side of head: No submental, submandibular or tonsillar adenopathy. Left side of head: No submental, submandibular or tonsillar adenopathy. Cervical: No cervical adenopathy. Skin: General: Skin is warm and dry. Neurological: Mental Status: She is alert. Psychiatric: Mood and Affect: Affect normal. ASSESSMENT/PLAN: 1. COPD with exacerbation (HCC) - ICD9: 491.21, ICD10: J44.1 (primary diagnosis) Prednisone burst, albuterol every 4-6 hours Tessalon perls 2. URI with cough and congestion - ICD9: 465.9, ICD10: J06.9 - Discussed viral etiology and rationale for treatment. - Symptomatic treatment with prn analgesia - Supportive care with fluids and rest - Declines testing Diagnosis and treatment plan were discussed and questions were answered to the patient's satisfaction. Pt acknowledged understanding of concepts and follow up plan. Specific signs and symptoms that would indicate the need for higher level of care were discussed in detail warranting prompt ER evaluation. Camila Armenta APRN.TRACI documented in this encounter [facility] 10-13-2021 Note HNO ID: [id number] Author: Chris Weaver APRN.CNP Service: ? Author Type: Nurse Practitioner Type: Progress Notes Filed: 10/13/2021 11:05 AM Note Text: Subjective HPI A nontoxic appearing female presents to urgent care with chief complaint of possible UTI. Duration of symptoms 1 day. Associated symptoms dysuria, frequency, and strong urine odor. Patient has history of UTIs in past with similar signs and symptoms. Patient denies the use of any ohtu-kyc-tjjgbdy medications or home remedies for symptom management. Patient states pain is a 4/10. Patient denies any fevers, flank pain, abdominal pain, nausea, vomiting, vaginal discharge,or urological abnormalities. Past medical history prescription medication use allergies reviewed. Past medical history prescription medication use allergies reviewed. .Patient presents with: UTI: pelvic cramping, urine odor x1 day PAST MEDICAL HISTORY Diagnosis Date - Acute diastolic heart failure (HCC) 10/26/2018 - Acute pulmonary edema (HCC) 10/26/2018 - Adrenal mass (HCC) B/L - Anxiety state - Benign essential HTN 2018 - Bilateral renal cysts - Chronic gastric ulcer 2018 - Current smoker - Depressive disorder, not elsewhere classified - Diverticulosis of colon (without mention of hemorrhage) - Endometriosis, site unspecified Endometriosis - Epigastric abdominal pain - Fatigue - Hepatic lesion - Hyperlipidemia - Multiple gastric ulcers had 5 - now only one - Nervous breakdown - Osteoporosis - Panlobular emphysema (HCC) - Seborrheic keratosis PAST SURGICAL HISTORY Procedure Laterality Date - COLONOSCOPY 09/02/2014 - COLONOSCOPY FLX DX W/COLLJ SPEC WHEN PFRMD 01/24/2008 Colonoscopy - ESOPHAGOGASTRODUODENOSCOPY TRANSORAL DIAGNOSTIC 05/11/2014 EGD - ESOPHAGOGASTRODUODENOSCOPY TRANSORAL DIAGNOSTIC 08/10/14 EGD - LAPAROSCOPY SURG CHOLECYSTECTOMY 05/25/2014 - PAST SURGICAL HISTORY OF bowel surgery after hyster, bowel obstruction - PAST SURGICAL HISTORY OF plate right wrist - PAST SURGICAL HISTORY OF 10/1997 Right wrist fusion, right carpal tunnel, right Grapow's - PAST SURGICAL HISTORY OF 08/2014 arterial stents placed in the celiac trunk and SMA - TOTAL ABDOMINAL HYSTERECT W/WO RMVL TUBE OVARY Exploratory laparotomy, total abdominal hysterectomy with bilateral salpingo-oophorectomy and lysis of adhesions with left ureteral lysis ALLERGIES Morphine MEDICATIONS citalopram (CELEXA) 20 mg tablet Take by mouth once daily. levothyroxine 25 mcg cap Take 25 mcg by mouth daily before breakfast. icosapent ethyl (VASCEPA) 1 gram capsule Take 2 g by mouth twice daily with meals. albuterol HFA (PROVENTIL HFA, VENTOLIN HFA) 90 mcg/actuation inhaler Inhale 2 Puffs as instructed every 4 hours as needed for wheezing/shortness of breath. metoprolol tartrate, short acting, (LOPRESSOR) 50 mg tablet Take 50 mg by mouth twice daily. ALPRAZolam (XANAX) 1 mg tablet Take 1 mg by mouth twice daily. atorvastatin (LIPITOR) 80 mg tablet Take 1 tablet by mouth once daily. tiotropium (SPIRIVA RESPIMAT) 2.5 mcg/actuation inhaler Inhale 2 Puffs as instructed once daily. acetaminophen (TYLENOL) 325 mg tablet Take 1-2 tablets by mouth every 4 hours as needed. FAMILY HISTORY Problem Relation Age of Onset - Hypertension Mother Kidney Disease - Hypertension Father Stroke; Depression/Anxiety - Hypertension Brother - Hypertension Sister - Hypertension Sister - Stroke Maternal Grandfather age 50's - Stroke Paternal Grandfather - other (Leukemia) Paternal Grandmother - other (Liver Cancer) Daughter S/P OLT Social History Tobacco Use - Smoking status: Former Smoker Packs/day: 1.00 Years: 30.00 Pack years: 30.00 Types: Cigarettes Start date: 04/06/1987 Quit date: 10/29/2018 Years since quittin.9 - Smokeless tobacco: Never Used - Tobacco comment: NO VAPING HISTORY Substance Use Topics - Alcohol use: No - Drug use: No BP 122/84 Pulse 83 Temp 36.6 ?C (97.8 ?F) Resp 20 Wt 49 kg (108 lb) SpO2 95% BMI 19.13 kg/m? Review of Systems Constitutional: Negative for chills, fever and malaise/fatigue. HENT: Negative for congestion, ear discharge, ear pain, sinus pain and sore throat. Eyes: Negative for blurred vision, pain, discharge and redness. Respiratory: Negative for cough, hemoptysis, sputum production, shortness of breath, wheezing and stridor. Cardiovascular: Negative for chest pain. Gastrointestinal: Negative for abdominal pain, diarrhea, nausea and vomiting. Genitourinary: Positive for dysuria and frequency. Negative for flank pain, hematuria and urgency. Musculoskeletal: Negative for myalgias. Skin: Negative for itching and rash. Neurological: Negative for dizziness and headaches. Objective Physical Exam Constitutional: General: She is not in acute distress. Appearance: She is not diaphoretic. HENT: Head: Normocephalic. Eyes: Con (more content not included)... [facility] 09-09-2021 Note HNO ID: [id number] Author: Tres Bacon MD Service: ? Author Type: Physician Type: Progress Notes Filed: 09/09/2021 1:59 PM Note Text: Patient presents with: Cough: chest congestion, sinus pressure, KARTIK ear pain, GONZALES x4 days HPI: Feeling sick starting 4 days ago. Positive symptoms: Cough (productive), Shortness of breath, Wheezing, Chest tightness, Sore throat, Earache, Nasal Congestion, Rhinorrhea, Post nasal drainage, mild Body Aches, mild Headache, little Diarrhea, Negative symptoms: Chest pain, Fever, Chills, Fatigue, Nausea, Vomiting, palpitations, edema OTC: Tylenol. Has not been using spiriva (expense) and does not have albuterol. Had second dose of Moderna COVID-19 vaccine in February. Had COVID illness in 03/2020 based off illness and exposure (had lost taste). PAST MEDICAL HISTORY Diagnosis Date - Acute diastolic heart failure (HCC) 10/26/2018 - Acute pulmonary edema (HCC) 10/26/2018 - Adrenal mass (HCC) B/L - Anxiety state - Benign essential HTN 2018 - Bilateral renal cysts - Chronic gastric ulcer 2018 - Current smoker - Depressive disorder, not elsewhere classified - Diverticulosis of colon (without mention of hemorrhage) - Endometriosis, site unspecified Endometriosis - Epigastric abdominal pain - Fatigue - Hepatic lesion - Hyperlipidemia - Multiple gastric ulcers had 5 - now only one - Nervous breakdown - Osteoporosis - Seborrheic keratosis MEDICATIONS: Current Outpatient Medications Medication Sig - citalopram (CELEXA) 20 mg tablet Take by mouth once daily. - levothyroxine 25 mcg cap Take 25 mcg by mouth daily before breakfast. - icosapent ethyl (VASCEPA) 1 gram capsule Take 2 g by mouth twice daily with meals. - metoprolol tartrate, short acting, (LOPRESSOR) 50 mg tablet Take 50 mg by mouth twice daily. - ALPRAZolam (XANAX) 1 mg tablet Take 1 mg by mouth twice daily. - atorvastatin (LIPITOR) 80 mg tablet Take 1 tablet by mouth once daily. - acetaminophen (TYLENOL) 325 mg tablet Take 1-2 tablets by mouth every 4 hours as needed. - albuterol HFA (PROVENTIL HFA, VENTOLIN HFA) 90 mcg/actuation inhaler Inhale 2 Puffs as instructed every 4 hours as needed for wheezing/shortness of breath. - tiotropium (SPIRIVA RESPIMAT) 2.5 mcg/actuation inhaler Inhale 2 Puffs as instructed once daily. (Patient not taking: Reported on 09/09/2021 ) No current facility-administered medications for this visit. ALLERGIES: ALLERGIES Allergen Reactions - Morphine Itching VITALS: BP 122/78 Pulse 100 Temp 36.8 ?C (98.3 ?F) Resp 20 Wt 50.7 kg (111 lb 12.8 oz) SpO2 91% BMI 19.80 kg/m? Vitals PULSE OX 09/04/2014 92 10/05/2014 97 11/03/2018 92 12/13/2018 99 01/10/2019 96 09/09/2021 91 PHYSICAL EXAM: GEN: pleasant, mildly ill appearing HEENT: PERRL, EOMI, conjunctiva clear Ears: canals clear. TMs without erythema, bulge, or effusion Sinuses: non-tender frontal sinus, non-tender maxillary sinuses Throat: moist mucous membranes, mild erythema, no exudate Neck: supple, no thyromegaly, no lymphadenopathy HEART: regular rate and rhythm, no murmurs LUNGS: clear to auscultation, no wheezes or crackles, no increased WOB ASSESSMENT/PLAN: 1. URI, acute - ICD9: 465.9, ICD10: J06.9 (primary diagnosis) - suspect viral URI, differential includes COVID-19. - Discussed supportive care treatment with home isolation, rest, cold medicine, and analgesia. - Red flags to seek further treatment include chest pain, shortness of breath, and lethargy; in the ER if severe. - 2019 CORONAVIRUS 2. COPD with exacerbation (HCC) - ICD9: 491.21, ICD10: J44.1 - 2019 CORONAVIRUS - ALBUTEROL SULFATE HFA 90 MCG/ACTUATION AEROSOL INHALER - PREDNISONE 10 MG TABLET - DOXYCYCLINE MONOHYDRATE 100 MG CAPSULE Tres Bacon MD [facility] 09-09-2021 History of Present illness Narrative Patient presents with: Cough: chest congestion, sinus pressure, KARTIK ear pain, GONZALES x4 days HPI: Feeling sick starting 4 days ago. Positive symptoms: Cough (productive), Shortness of breath, Wheezing, Chest tightness, Sore throat, Earache, Nasal Congestion, Rhinorrhea, Post nasal drainage, mild Body Aches, mild Headache, little Diarrhea, Negative symptoms: Chest pain, Fever, Chills, Fatigue, Nausea, Vomiting, palpitations, edema OTC: Tylenol. Has not been using spiriva (expense) and does not have albuterol. Had second dose of Moderna COVID-19 vaccine in February. Had COVID illness in 03/2020 based off illness and exposure (had lost taste). PAST MEDICAL HISTORY Diagnosis Date Acute diastolic heart failure (HCC) 10/26/2018 Acute pulmonary edema (HCC) 10/26/2018 Adrenal mass (HCC) B/L Anxiety state Benign essential HTN 2018 Bilateral renal cysts Chronic gastric ulcer 2018 Current smoker Depressive disorder, not elsewhere classified Diverticulosis of colon (without mention of hemorrhage) Endometriosis, site unspecified Endometriosis Epigastric abdominal pain Fatigue Hepatic lesion Hyperlipidemia Multiple gastric ulcers had 5 - now only one Nervous breakdown Osteoporosis Seborrheic keratosis MEDICATIONS: Current Outpatient Medications Medication Sig citalopram (CELEXA) 20 mg tablet Take by mouth once daily. levothyroxine 25 mcg cap Take 25 mcg by mouth daily before breakfast. icosapent ethyl (VASCEPA) 1 gram capsule Take 2 g by mouth twice daily with meals. metoprolol tartrate, short acting, (LOPRESSOR) 50 mg tablet Take 50 mg by mouth twice daily. ALPRAZolam (XANAX) 1 mg tablet Take 1 mg by mouth twice daily. atorvastatin (LIPITOR) 80 mg tablet Take 1 tablet by mouth once daily. acetaminophen (TYLENOL) 325 mg tablet Take 1-2 tablets by mouth every 4 hours as needed. albuterol HFA (PROVENTIL HFA, VENTOLIN HFA) 90 mcg/actuation inhaler Inhale 2 Puffs as instructed every 4 hours as needed for wheezing/shortness of breath. tiotropium (SPIRIVA RESPIMAT) 2.5 mcg/actuation inhaler Inhale 2 Puffs as instructed once daily. (Patient not taking: Reported on 09/09/2021 ) No current facility-administered medications for this visit. ALLERGIES: ALLERGIES Allergen Reactions Morphine Itching VITALS: BP 122/78 Pulse 100 Temp 36.8 C (98.3 F) Resp 20 Wt 50.7 kg (111 lb 12.8 oz) SpO2 91% BMI 19.80 kg/m Vitals PULSE OX 09/04/2014 92 10/05/2014 97 11/03/2018 92 12/13/2018 99 01/10/2019 96 09/09/2021 91 PHYSICAL EXAM: GEN: pleasant, mildly ill appearing HEENT: PERRL, EOMI, conjunctiva clear Ears: canals clear. TMs without erythema, bulge, or effusion Sinuses: non-tender frontal sinus, non-tender maxillary sinuses Throat: moist mucous membranes, mild erythema, no exudate Neck: supple, no thyromegaly, no lymphadenopathy HEART: regular rate and rhythm, no murmurs LUNGS: clear to auscultation, no wheezes or crackles, no increased WOB ASSESSMENT/PLAN: 1. URI, acute - ICD9: 465.9, ICD10: J06.9 (primary diagnosis) - suspect viral URI, differential includes COVID-19. - Discussed supportive care treatment with home isolation, rest, cold medicine, and analgesia. - Red flags to seek further treatment include chest pain, shortness of breath, and lethargy; in the ER if severe. - 2019 CORONAVIRUS 2. COPD with exacerbation (HCC) - ICD9: 491.21, ICD10: J44.1 - 2018 CORONAVIRUS - ALBUTEROL SULFATE HFA 90 MCG/ACTUATION AEROSOL INHALER - PREDNISONE 10 MG TABLET - DOXYCYCLINE MONOHYDRATE 100 MG CAPSULE Tres Bacon MD documented in this encounter [facility] documented as of this encounter (statuses as of 09/09/2021) [facility]07-25-2019 History of Past illness Narrative* Problem Noted Date Resolved Date Thrombocytopenia 10/28/2018 10/31/2018 Overview: History: Postoperative. Assessment: Platelet count now 107 on AM labs. No S/S of bleeding. Plan: Trend daily. Continue scheduled daily ASA and Heparin SQ. On mechanically assisted ventilation 2018 10/25/2018 Overview: History / Course: Postoperative Assessment: On mechanical ventilation Plan: WTE GI bleed 08/31/2014 2018 Overview: 63 year old White female with mesenteric ischemia now POD 2 s/p celiac and SMA stent placement. PMH also significant for Patient was discharged yesterday on ASA/plavix. Woke up this am with 2 episodes of dark, formed, tar-like stools. Has history of gastric ulcers but states at last evaluation all but one had healed. Denies abdominal pain, nausea, vomiting. Does endorse mild LUQ tenderness for past day. Not radiating and dull. Denies cp/soa/headache/dizziness. On admission, patient had very small BM (appox 20 cc) which was black upper endoscopy 08/31/14 showed no ulceration, but small gastric erosion without evidence of bleeding. CVP placed for access. Plan: 09/02/2014 Colonoscopy revealed no active bleeding. May eat. Continue PPI and follow HCTs. 09/04/2014 Tolerating diet. H/H has remained stable. Discharge to home Abdominal pain, right upper quadrant 05/11/2014 05/11/2014 Nausea 05/11/2014 05/11/2014 documented as of this encounter (statuses as of 03/28/2022) [facility] Diagnosis URI, acute- Primary Acute upper respiratory infections of unspecified site COPD with exacerbation (HCC) Obstructive chronic bronchitis with exacerbation [facility] COPD with exacerbation (HCC)- Primary Obstructive chronic bronchitis with exacerbation URI with cough and congestion documented in this encounter [facility] Summary Purpose Family History No Family History Records FoundNo Family History Records Found Advance Directives No Advanced Directives Records FoundDocuments on File Type Date 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 Advance Directive(s) 2018 10:24 PM Health Concerns Infection Onset Date Last Indicated Resolved Time COVID-19 Rule-Out 09/09/2021 09/09/2021 Additional Source Comments INFORMATION SOURCE (unrecogn ized section and content) DATE CREATED AUTHOR AUTHOR'S ORGANIZ ATION 08/17/2022 [facility] Source Comments (unrecognize d section and content) In the event this informatio n is protected by the Federal Confidentiality of Alcohol and Drug Abuse Patient Records regulations: The Federal rules restrict any use of the information to criminally investigate or prosecute any alcohol or drug abuse patient.[facility] the event this information is protected by the Federal Confidentiality of Alcohol and Drug Abuse Patient Records regulations: The Federal rules restrict any use of the information to criminally investigate or prosecute any alcohol or drug abuse patient.[facility] Reason for Visit (unrecogniz ed section and content) Reason Comments Cough Chest congestion, SO B, bodyaches, GONZALES x6 days Care Teams (unrecognized sec tion and content) 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 This clinical summary was aggregated from multiple sources. Caution should be exercised in using it in the provision of clinical care. This summary normalizes information from multiple sources, and as a consequence, information in this document may materially change the coding, format and clinical context of patient data. In addition, data may be omitted in some cases. CLINICAL DECISIONS SHOULD BE BASED ON THE PRIMARY CLINICAL RECORDS. [facility]. provides no warranty or guarantee of the accuracy or completeness of information in this document.
[2023-06-22 11:07] LABS: Absolute Lymphocyte Count 2.15 X10^3/uL (0.83-4.51); Absolute Neutrophil Count 11.8 X10^3/uL (2.0-7.7); Basophil# 0.07 X10^3/uL; Basophil% 0.5 % (0-1); Eosinophil# 0.08 X10^3/uL; Eosinophils% 0.5 % (0-5); Hematocrit 45.3 % (37-47); Hemoglobin 14.4 g/dL (12.0-15.0); Lymphocyte # 2.15 X10^3/ul (0.83-4.51); Lymphocyte % 14.6 % (19-41); Mean Corp Hgb Conc 31.8 g/dL (32-36); Mean Corpuscular Hgb 29.1 pg (27.0-32.0); Mean Corpuscular Volume 91.5 fL (81-99); Mean Platelet Vol. 9.7 fl (6.2-12.0); Monocyte# 0.52 X10^3/uL; Monocyte% 3.5 % (0-10); NRBC Flagged by Analyzer 0 % (0-5); Neutrophil # 11.77 X10^3/uL (2.7-7.7); Neutrophil % 80.1 % (47-70); Platelet Count 337 K/mm3 (150-450); RBC Distribution Width CV 13.2 % (11.6-14.6); RBC Distribution Width SD 44.6 fl (35.1-43.9); Red Blood Count 4.95 M/mm3 (4.2-5.4); White Blood Count 14.7 K/mm3 (4.4-11.0)
[2023-06-22 11:18] LABS: Vitamin D,25 Hydroxy 51.2 ng/mL
[2023-06-22 11:25] LABS: AST(SGOT) 24 U/L (15-37); Alanine Aminotransfer ALT/SGPT 19 U/L (13-56); Albumin, Serum 3.9 g/dL (3.2-5.0); Alkaline Phosphatase 87 U/L (45-117); Anion Gap 7 (5-15); BUN 21 mg/dL (7-18); BUN/Creat Ratio 25.8 RATIO (10-20); Calcium,Total 9.1 mg/dL (8.5-10.1); Chloride 103 mmol/L (98-107); Creatinine, Serum 0.81 mg/dL (0.55-1.02); EST Glomerular Filtration Rate 74 mL/min (>60); Est Glom Filt Rate - Afr Amer 89 mL/min (>60); Globulin 3.8 g/dL (2.2-4.2); Glucose 114 mg/dL (74-106); Potassium 3.7 mmol/L (3.5-5.1); Protein, Total 7.7 g/dL (6.4-8.2); Sodium Level 137 mmol/L (136-145); Thyroid Stim Hormone (TSH) 3.75 uIU/mL (0.358-3.74)
== END | disposition home or self-care (01) ==
LOC: POLAB3 09:00
PROVIDERS: PCP Family Medicine Geriatric Medicine; Visit Provider Family Medicine Geriatric Medicine
DX: R53.83 Other fatigue (principal); E55.9 Vitamin D deficiency, unspecified
CPT/HCPCS: 36415; 80053; 82306; 84443; 85025

== ENCOUNTER 2023-08-10 07:57 | Day surgery (SDC) | payer MEDICARE, SELFPAY ==
[2023-08-10 08:29] VITALS: BP 135/82; PULSE 87; RESP 16; TEMP 36.7; O2SAT 96; BMI 17.9
[2023-08-10] MEDS: Lactated Ringers 1,000 ML 15 ML IV (08:36)
--- NOTE | 2023-08-10 08:59 | HP.PCM_ITS ---
HPI - General General Date of Service: 08/10/23 HPI Narrative GINNY PIERRE, is a 72 F who presents for surveillance colonoscopy due to history of colon polyps. Patient last colonoscopy was in 2018 patient to tubular adenomas at that time. Patient denies any family history of colon ca ncer, patient's bowel moods daily denies any blood. Patient denies any chronic abdominal pain/nausea/vomiting/reflux. [facility] Medical History (Updated 08/10/23 @ 09:[address] Gila Ortiz MD) Anxiety COPD (chronic obstructive pulmonary disease) Depression GI bleed History of GI bleed History of ulceration Hx of colonic polyps Hypercholesterolemia Hypothyroid PAOD (peripheral arterial occlusive disease) Shortness of breath on exertion Smoker Superior mesenteric artery stenosis Thyroid disease Wears dentures Wears glasses Home Medications atorvastatin 80 mg tablet 80 mg PO QHS 07/09/16 [History Last Taken Unknown] aspirin 81 mg chewable tablet 81 mg PO DAILY@0800 01/07/19 [History Last Taken 08/05/23] albuterol sulfate 90 mcg/actuation aerosol inhaler 2 puff inhalation Q4H 06/23/23 [History Last Taken Unknown] alprazolam 0.25 mg tablet 0.25 mg PO DAILY PRN anxiety 06/23/23 [History Last Taken Unknown] ascorbic acid (vitamin C) 500 mg tablet 1 g PO DAILY 06/23/23 [History Last Taken Unknown] cholecalciferol (vitamin D3) 125 mcg (5,000 unit) capsule 125 mcg PO DAILY 06/23/23 [History Last Taken Unknown] citalopram 20 mg tablet 20 mg PO DAILY 06/23/23 [History Last Taken Unknown] levothyroxine 50 mcg tablet 50 mcg PO DAILY 08/05/23 [History Last Taken Unknown] Allergy/AdvReac Type Severity Reaction Status Date / Time morphine Allergy Itching Verified 08/10/23 08:29 Family History (Updated 06/23/23 @ 12:05 by No Jose) Mother Diabetes Hypertension Kidney disease Daughter Breast cancer Father CVA (cerebral vascular accident) Brother Colon polyps Surgical History H/O: hysterectomy History of laparoscopic cholecystectomy History of surgery on wrist Hx of colonoscopy Social History (Updated 06/23/23 @ 12:05 by No Jose) current occupational status: retired Smoking Status: Current every day smoker tobacco type: cigarettes alcohol intake: never substance use type: does not use Past Medical/Surgical History Planned Operation Planned Operative Procedure/s: CSCOPE S.O.S: No Previous Hospitalizations/Surgeries HX Hospitalizations: No HX of Surgeries: QUIT SMOKING 10/23 SURGERY FOR MESENTERIC ISCHEMIA OCTOBER 2018 WITH BYPASS Any Problems With Anesthesia: No You/Your Family Experience Fever (Hyperthermia) With Anes: No Cholinesterase deficiency: No Cardiovascular Hx Chest Pain within Last 2 months: No Hx of Irregular Heartbeat and/or Afib: No Hx Heart Attack: No Hx Congestive Heart Failure: No Hx Rheumatic Fever: No Hx Hypertension: No Hx Internal Defibrillator: No Hx Pacemaker: No Hx Cardiac Catheterization: No Hx Cardiac Surgery/Stents/Etc.: No Hx Stress Test: No Hx Pain in Legs when Walking/Leg Cramps: No Respiratory Chronic Cough: No HX of Shortness of Breath: No Hoarseness: No Hx Chronic Obstructive Pulmonary Disease (COPD): No Hx Asthma: No Hx Emphysema: No Hx Sleep Apnea: No CPAP: No BIPAP: No Hx Respiratory Tract Infection/Cold (presently): No Do You Snore Loudly (louder than talking or can be heard): No Do You Often Feel Tired/ Fatigued/ Sleepy Dring Daytime?: No Has Anyone Observed You Stop Breathing During Sleep?: No Result (for STOP score): Negative Hx Smoking: Yes (LESS THAN A PACK/DAY) Smoking Status: Current every day smoker Gastrointestinal Controlled With Meds: Yes Hx Gastrointestinal Disorders: No Hx Gastrointestinal Bleed: No Hx Ulcer: Yes (EGD DONE MAY 2014) Hx Hiatal Hernia: No Difficulty Chewing/Swallowing: No Special diet followed at home: No Hx Unplanned Weight Loss of 20#: No HX Unplanned Weight Gain of 20#: No Neurological Hx Seizures: No HX Syncope/Blackout Spells/Unconsciousness: No Hx Transient Ischemic Attacks (TIA): No Hx Multiple Sclerosis: No Hx Parkinson's Disease: No Hx Head/Neck Injury: No Hx Headaches: No Hx Back Injury/Pain: No Recent Onset of Speech Difficulty: No Restless Legs: No Does patient have nerve stimulator: No Blood Disorder Hx Leukemia: No Bleeding Tendencies: No Hx Deep Vein Thrombosis: No Hx High Cholesterol: Yes Blood Transmitted Disease: No Hx Hepatitis: No Hx Cirrhosis: No Hx Anemia: No Hx Blood Disorders: No Reproduction : No Is Patient Lactating: No Hx Hysterectomy: Yes Hx Tubal Ligation: No Are You Post Menopause: Yes Genitourinary Hx Renal Disease: No Hx Dialysis: No Musculoskeletal Hx Arthritis: No Hx Rheumatoid Arthritis: No Hx Gout: No Recent Onset of an Orthopedic Problem: No Endocrine Hx Diabetes: No Thyroid Disease: No Hx Steroid Therapy: No Psycho/Social Hx Substance Use: No Hx Alcohol Use: No Hx Anxiety: Yes Hx Depression: Yes (ON MEDS) Mental Illness: No Hx Dementia: No Miscellaneous Hx Cancer: No Recent Exposure to Contagious Disease: No Hx of C-Diff: No Any Loose Teeth: No (UPPER DENTURE) Allergies morphine Allergy (Verified 08/10/23 08:29) Itching Discharge Is Pt Admitted From a Long Term, or a Assisted: No After D/C, Where Do you Plan to Go: Return Home From the [facility] History Number of Risk Factors: 3 Vital Signs Vital Signs Vital Signs: 08/10/23 08:29 08/10/23 08:29 Temperature 98.1 F Temperature Source Temporal Pulse Rate 87 Respiratory Rate 16 Respiratory Pattern Normal Blood Pressure 135/82 H Blood Pressure Mean 99 Blood Pressure Source Monitor Blood Pressure Position Semi-Fowlers Blood Pressure Location Right Arm Pulse Ox 96 Oxygen Delivery Method Room Air Weight Weight: 101 lb 6.602 oz Body Mass Index (BMI) 17.9 Physical Exam Const alert, oriented x3 and no apparent distress HEENT normocephalic and head/scalp atraumatic Resp normal respiratory effort Cardio regular rate GI soft to palpation and non-tender; Negative for non-distended Palpation: Negative for guarding Extremity no clubbing, cyanosis or edema Skin no rashes or lesions noted Neuro CN's II-XII intact bilaterally Psych mental status grossly normal Assessment & Plan Assessment/Plan (1) Hx of colonic polyps: Surgery Risks - Colonoscopy I discussed with the patient the risks of the procedure: Yes Risks Include but are not Limited To: Risks include but are not limited to: Bleeding, perforation requiring further surgery, inability to complete colonoscopy requiring barium enema.
--- NOTE | 2023-08-10 09:45 | COLBX_PTH ---
PATIENT: GINNY PIERRE LOC: EN U#:[id number] AGE/SX: 72/F ROOM: RE08/10/[address]: Dr. Gila Ortiz MD : 1950 BED: DIS: 08/10/2023 SPEC #: [id number] RECD: 08/10/23 13:06 STATUS: PHYLLIS REMartin #: [id number] MARISOL: 08/10/23 09:[address]: Gila Ortiz DEPT: SURGICAL PATHOLOGY RECD BY: Mana Wilson ENTERED: 08/10/23 14:19 SP TYPE: COLON BX OTHR DR: Dr. Michael Oliveira MD Tissues: Rectum, NOS Procedures: Surgery Specimen Level IV HEADER OPERATION: Colonoscopy, polypectomy and biopsy PRE-OP DIAGNOSIS: History of colonic polyps TISSUE SUBMITTED: Rectum- multiple polyps MICROSCOPIC DIAGNOSIS Rectum multiple polyps, polypectomy and biopsy: Tubular adenoma. Fragments of hyperplastic polyp. SIAIAS/mr 08/11/23 MICROSCOPIC DESCRIPTION Slides are reviewed. GROSS DESCRIPTION Received in fixative is one container labeled with the patient's name and designated Rectum biopsy. The specimen consists of multiple irregular fragments of light love soft tissue that in aggregate measure 3.0 x 0.7 x 0.3 cm. The specimen is totally submitted in one cassette. ISAIAS/ 08/10/23 TC:1 CPT:89889
--- NOTE | 2023-08-10 10:15 | OP.COLON_ITS ---
Patient Name: Jessica Segura Procedure Date: 08/10/2023 9:34 AM Date of : 1950 Age: 72 Procedure: Colonoscopy Indications: High risk colon cancer surveillance: Personal history of colonic polyps, Surveillance: Personal history of adenomatous polyps on last colonoscopy 5 years ago Providers: Gila Ortiz MD Referring MD: Michael Oliveira MD Medicines: Monitored Anesthesia Care Patient Profile: This is a 72 year old female. Last Colonoscopy: 2017. Complications: No immediate complications. Procedure: Pre-Anesthesia Assessment: - Prior to the procedure, a History and Physical was performed, and patient medications and allergies were reviewed. The patient's tolerance of previous anesthesia was also reviewed. The risks and benefits of the procedure and the sedation options and risks were discussed with the patient. All questions were answered, and informed consent was obtained. Prior Anticoagulants: The patient has taken no anticoagulant or antiplatelet agents. ASA Grade Assessment: Per anesthesia. After reviewing the risks and benefits, the patient was deemed in satisfactory condition to undergo the procedure. After I obtained informed consent, the scope was passed under direct vision. Throughout the procedure, the patient's blood pressure, pulse, and oxygen saturations were monitored continuously. The Colonoscope was introduced through the anus and advanced to the cecum, identified by the appendiceal orifice, ileocecal valve and palpation. The colonoscopy was technically difficult and complex due to a tortuous colon. The patient tolerated the procedure well. The quality of the bowel preparation was good. Scope In: 9:44:20 AM Scope Withdrawal Time 0 hours 20 minutes 30 seconds Scope Out: 10:09:53 AM Total Procedure Duration Time 0 hours 25 minutes 33 seconds Findings: Hemorrhoids were found on perianal exam. Non-bleeding internal hemorrhoids were found. The hemorrhoids were Grade I (internal hemorrhoids that do not prolapse). Four semi-pedunculated polyps were found in the rectum. The polyps were less than 5 mm in size. These polyps were removed with a hot snare. Resection and retrieval were complete. Multiple sessile polyps were found in the rectum. The polyps were less than 5 mm in size. These polyps were removed with a cold biopsy forceps. Resection and retrieval were complete. The exam was otherwise without abnormality. Impression: - Hemorrhoids found on perianal exam. - Non-bleeding internal hemorrhoids. - Four less than 5 mm polyps in the rectum, removed with a hot snare. Resected and retrieved. - Multiple less than 5 mm polyps in the rectum, removed with a cold biopsy forceps. Resected and retrieved. - The examination was otherwise normal. Recommendation: - Discharge patient to home. - Resume previous diet. - Continue present medications. - Await pathology results. - Repeat colonoscopy in 5 years for surveillance based on pathology results. Procedure Code(s): --- Professional --- 07215, PT, Colonoscopy, flexible; with removal of tumor(s), polyp(s), or other lesion(s) by snare technique 11068, 59, Colonoscopy, flexible; with biopsy, single or multiple Diagnosis Code(s): --- Professional --- K64.0, First degree hemorrhoids D12.8, Benign neoplasm of rectum Z86.010, Personal history of colonic polyps CPT copyright 2021 [employer]. All rights reserved. The codes documented in this report are preliminary and upon stunt person review may be revised to meet current compliance requirements. MD Gila Garcia MD 08/10/2023 10:14:39 AM This report has been signed electronically. Number of Addenda: 0 Note Initiated On: 08/10/2023 9:34 AM
--- NOTE | 2023-08-10 10:15 | OP.CCLET_ITS ---
08/10/2023 Michael Oliveira MD [address] [place] [address] Re : Colonoscopy procedure for Jessica Segura Dear Dr. Oliveira This procedure was performed on Thursday, August 10, 2023. My impressions and recommendations are as follows: Impressions : - Hemorrhoids found on perianal exam. - Non-bleeding internal hemorrhoids. - Four less than 5 mm polyps in the rectum, removed with a hot snare. Resected and retrieved. - Multiple less than 5 mm polyps in the rectum, removed with a cold biopsy forceps. Resected and retrieved. - The examination was otherwise normal. Recommendations : - Discharge patient to home. - Resume previous diet. - Continue present medications. - Await pathology results. - Repeat colonoscopy in 5 years for surveillance based on pathology results. My findings are described in the full procedure note, which is enclosed. If I can be of further assistance, please feel free to contact me at Doctor phone number(s): , Work: . Sincerely, MD Gila Garcia MD 08/10/2023 10:14:39 AM This report has been signed electronically.
[2023-08-10 10:18] VITALS: BP 121/63; BP 135/82; PULSE 88; RESP 16; TEMP 36.1; O2SAT 100
[2023-08-10 10:20] VITALS: BP 119/64; BP 135/82; PULSE 91; RESP 16; O2SAT 100
[2023-08-10 10:25] VITALS: BP 117/60; BP 135/82; PULSE 87; RESP 16; O2SAT 99
[2023-08-10 10:30] VITALS: BP 113/65; BP 135/82; PULSE 84; RESP 16; TEMP 36.3; O2SAT 96
[2023-08-10 10:59] VITALS: BP 135/82
== END 2023-08-10 11:43 | disposition home or self-care (01) ==
LOC: EN 07:58 → AC 08:01
PROVIDERS: PCP Family Medicine Geriatric Medicine; Referring Provider Family Medicine Geriatric Medicine; Visit Provider Surgery
PROC: 0DJD8ZZ Inspection of Lower Intestinal Tract, Via Natural or Artificial Opening Endoscopic (ICD-10-PCS; CPT 45378; principal; 2023-08-10 09:40)
DX: Z12.11 Encounter for screening for malignant neoplasm of colon (principal); J44.9 Chronic obstructive pulmonary disease, unspecified; E78.00 Pure hypercholesterolemia, unspecified; F17.210 Nicotine dependence, cigarettes, uncomplicated; K64.0 First degree hemorrhoids; Z86.010 Personal history of colon polyps; Z79.82 Long term (current) use of aspirin; Z79.890 Hormone replacement therapy; E03.9 Hypothyroidism, unspecified; Z90.49 Acquired absence of other specified parts of digestive tract; K64.4 Residual hemorrhoidal skin tags; D12.8 Benign neoplasm of rectum
CPT/HCPCS: 45380; 45385; 88305; J7120; J2405